=== PATIENT | male | born 1945 | race Caucasian/White ===

== ENCOUNTER 2020-04-13 09:45 | Inpatient (IN) | payer MEDICARE, BC ==
[2020-04-13] MEDS ORDERED: PHENYLEPHRINE-NS 100 MCG/ML 10 ML SYRINGE ONE (09:52)
[2020-04-13] MEDS ORDERED: Rocuronium Bromide 10 MG/ML (10ML VIAL) ONE (09:52)
[2020-04-13] MEDS ORDERED: PROPOFOL 200 MG/20 ML VIAL ONE (09:52)
[2020-04-13] MEDS ORDERED: Succinylcholine 200 MG/10 ml SYRINGE FS ONE (09:52)
[2020-04-13] MEDS ORDERED: EPHEDRINE 25 MG/5 ML SYRINGE ONE (09:52)
[2020-04-13] MEDS ORDERED: Dexamethasone 20 MG/5 ML VIAL ONE (09:52)
[2020-04-13] MEDS ORDERED: Ondansetron PF 4 MG/2 ML Vial ONE (09:52)
[2020-04-13] MEDS ORDERED: Albuterol Sulfate HFA (OR ONLY) ONE ×2 (09:52→11:58)
--- NOTE | 2020-04-13 09:58 | CT ---
CT Brain WO Con: 04/13/2020 9:45 AM CLINICAL HISTORY: Unable to follow commands with right-sided weakness; stroke alert. IMAGING TECHNIQUE: Multiple CT images were obtained of the brain without IV contrast. COMPARISON: None. FINDINGS: BRAIN: Evidence of acute infarct: None. Evidence of chronic ischemic change:There is moderate chronic small vessel white matter ischemic [place] ge. There is a tiny remote lacunar infarcts involving the globus pallidus and left caudate head. Evidence of intracranial hemorrhage: None. Evidence of midline shift: Third ventricle and septum pellucidum are midline. Ventricles: Normal. No hydrocephalus. SKULL: Intact. VISUALIZED PARANASAL SINUSES: There is osteitis surrounding a completely opacified right major sphen oid air cell. There is mild mucosal thickening in the ethmoid air cells. Maxillary sinuses appear clear. MASTOID AIR CELLS: Clear. EXTRACRANIAL SOFT TISSUES: Normal. IMPRESSION: 1. No definite acute intracranial abnormality. 2. Moderate chronic small vessel white matter ischemic change. 3. Chronic right sphenoid sinusitis. 4. Findings called to Dr. Boothe at 9:53 AM on April 13, 2020
[2020-04-13 10:00] LABS: #Eosinphils 0.3 thou/uL (0.0-0.7); #Lymphocytes 1.3 thou/uL (1.20-3.40); #Monocytes 0.7 thou/uL (0.11-0.59); %Basophils 0.5 % (0.0-1.0); %Eosinophils 3.5 % (0.0-10.0); %Lymphocytes 13.6 % (21.0-51.0); %Monocytes 7.9 % (0.0-10.0); %Neutrophils 74.6 % (42.0-75.0); Hemoglobin 14.9 g/dL (14.0-18.0); Mean Corpuscular HGB CONC 32.3 g/dL (32.0-36.0); Mean Corpuscular Hemoglobin 30.5 pg (27.0-31.0); Mean Corpuscular Volume 94.5 fL (78.0-98.0); Mean Platelet Volume 8.6 fL (7.4-10.4); Platelet Count 164 thou/uL (130-400); RBC Distribution Width 13.5 % (11.5-14.5); White Blood Cell (WBC) Count 9.4 thou/uL (4.8-10.8)
[2020-04-13 10:12] LABS: INR-International Normal Ratio 0.9; PTT 27.6 sec (22.9-36.1); Prothrombin Time 12.6 sec (12.0-14.7)
[2020-04-13 10:15] LABS: ALT (SGPT) 8 U/L (8-55); AST (SGOT) 12 U/L (5-34); Albumin 4.1 g/dL (3.4-4.8); Alkaline Phosphatase 73 U/L (40-110); Anion Gap 12 mmol/L (10-20); BUN (Urea Nitrogen) 20 mg/dL (8.4-25.7); Bilirubin, Total 0.7 mg/dL (0.2-1.2); CK (CPK) 45 U/L (30-200); Calc. Creatinine Clearance 0 mL/min (70-130); Calcium 9.1 mg/dL (7.8-10.44); Carbon Dioxide 32 mmol/L (23-31); Chloride 98 mmol/L (98-107); Estimated GFR-MDRD 44; Globulin 2.6 g/dL (2.4-3.5); Glucose 103 mg/dL (83-110); Potassium 4.5 mmol/L (3.5-5.1); Protein, Total 6.7 g/dL (5.8-8.1); Sodium 137 mmol/L (136-145)
[2020-04-13] MEDS ORDERED: Heparin 10,000 UNITS/ 10 ML VIAL ONE (10:19)
[2020-04-13] MEDS ORDERED: Midazolam HCl 2 mg/2 ml Vial ONE (10:24)
[2020-04-13] MEDS ORDERED: Fentanyl 100 MCG/2 ML VIAL ONE (10:24)
--- NOTE | 2020-04-13 10:25 | CT ---
CTA of the head with IV contrast and 3-D reformatted imaging. CTA of the neck with IV contrast and 3-D reformatted imaging. INDICATION: Right-sided weakness with inability to speak COMPARISON: CT the brain without contrast dated April 13, 2020 at 9:51 AM. FINDINGS: CTA OF THE HEAD WITH CONTRAST: CTA OF THE BRAIN: Right ICA: There is some mild atherosclerotic irregularity involving the petrous, precavernous and c avernous segments of the right ICA. Right MCA: Patent. Right SANDEEP: Patent. ACOM: Patent. Left ICA: There is mild atherosclerotic irregularity involving the petrous and precavernous left ICA . Left MCA: There is complete occlusion of the distal left M1 branch extending into the proximal left M2 branch with intraluminal thrombus. There is a proximal variant anterior division MCA branch extending off of the proximal left M1 segment. Left SANEDEP: Patent. PCOMs: Patent. Vertebral arteries: Patent. Basilar Artery: Patent. mix house operator: Patent. Incidentals: Moderate chronic small vessel white matter ischemic change. CTA OF THE NECK WITH CONTRAST: Right CCA: Patent. Right ICA: Patent. Right Subclavian: Patent. Right Vertebral Artery: Patent. Left CCA: Patent. Left ICA: Patent. Left Subclavian: Patent. Left Vertebral Artery: Patent. Aerodigestive tract: Clear. Parotids/Submandibular/Thyroid glands: Normal. Lymph nodes: No pathologically enlarged lymph nodes. Lung Apices: There are patchy groundglass airspace opacities within the upper lobes bilaterally whic h may reflect areas of subsegmental volume loss. Mild pneumonitis cannot be entirely excluded. Bones: There is scattered degenerative and osteoarthritic change present. No acute fracture or sublu xation demonstrated. Incidentals: There is postsurgical change of prior CABG. There is prominent coronary artery and thor acic aortic calcifications. IMPRESSION: 1. Completely occluding thrombus seen within the distal left M1 branch extending into the proximal le ft M2 branch. Findings discussed with Dr. Boothe at 10:08 AM on April 13, 2020. 2. No hemodynamically significant stenosis, occlusion or aneurysmal formation seen within the neck. 3. Patchy groundglass opacities within the upper lobes may reflect subsegmental volume loss; however, a mild infectious or inflammatory pneumonitis cannot be entirely excluded.
[2020-04-13] MEDS ORDERED: SUGAMMADEX SODIUM 200 MG/2 ML VIAL ONE (11:46)
[2020-04-13] MEDS ORDERED: niCARdipine 25 MG in Sodium Chloride 0.9% 250 ML 240 ML IVPB PRN (11:53)
[2020-04-13] MEDS ORDERED: Labetalol HCl 100 MG/20 ML VIAL SLOW IVP PRN (11:53)
[2020-04-13] MEDS ORDERED: hydrALAZINE 20 MG/ML VIAL SLOW IVP PRN (11:53)
[2020-04-13] MEDS ORDERED: Albuterol Sulfate 1.25 MG/3 ML NEB ONE (11:57)
[2020-04-13] MEDS ORDERED: Iopamidol-370 76% 500 ML 1 ML ONE (12:53)
[2020-04-13 13:10] LABS: #Eosinphils 0.2 thou/uL (0.0-0.7); #Lymphocytes 0.9 thou/uL (1.20-3.40); #Monocytes 0.3 thou/uL (0.11-0.59); #Neutrophils 10.3 thou/uL (1.40-6.50); %Basophils 0.1 % (0.0-1.0); %Eosinophils 1.8 % (0.0-10.0); %Lymphocytes 7.5 % (21.0-51.0); %Monocytes 2.7 % (0.0-10.0); %Neutrophils 87.9 % (42.0-75.0); Hemoglobin 14.4 g/dL (14.0-18.0); Mean Corpuscular HGB CONC 33.7 g/dL (32.0-36.0); Mean Corpuscular Hemoglobin 31.1 pg (27.0-31.0); Mean Corpuscular Volume 92.4 fL (78.0-98.0); Mean Platelet Volume 10.2 fL (7.4-10.4); Platelet Count 162 thou/uL (130-400); RBC Distribution Width 13.5 % (11.5-14.5); Red Blood Cell (RBC) Count 4.64 mill/uL (4.70-6.10); White Blood Cell (WBC) Count 11.8 thou/uL (4.8-10.8)
[2020-04-13 13:29] LABS: Anion Gap 15 mmol/L (10-20); BUN (Urea Nitrogen) 19 mg/dL (8.4-25.7); Calc. Creatinine Clearance 0 mL/min (70-130); Calcium 8.1 mg/dL (7.8-10.44); Carbon Dioxide 24 mmol/L (23-31); Chloride 104 mmol/L (98-107); Estimated GFR-MDRD 48; Glucose 115 mg/dL (83-110); Potassium 5.2 mmol/L (3.5-5.1); Sodium 138 mmol/L (136-145)
[2020-04-13 13:55] VITALS: BMI 34.9
[2020-04-13] MEDS: Communication Order-Pharmacy FS SCH (18:27)
[2020-04-13] MEDS: Sodium Chloride 0.9% 1,000 ML IV SCH (18:29)
[2020-04-13] MEDS: Arformoterol 15 MCG/2 ML NEB NEB SCH (19:10)
[2020-04-13] MEDS: Budesonide 0.5 MG/2 ML NEB NEB SCH (19:11)
--- NOTE | 2020-04-13 19:49 | CON ---
DATE OF CONSULTATION: 04/13/2020 CONSULTING PHYSICIAN: Dr. Holcomb. REASON FOR CONSULTATION: ICU management. HISTORY OF PRESENT ILLNESS: This is a 75-year-old male, who is in the ICU after thrombectomy for stroke. At the time of this dictation, there is no history and physical in the chart, so what I have is obtained from looking at the ER notes as the patient is aphasic and cannot give me anything in the way of history. PAST MEDICAL HISTORY: Remarkable for hypertension, diabetes mellitus type 2, gout, and COPD. PAST SURGICAL HISTORY: Not known at this time. ALLERGIES: NOT KNOWN. SOCIAL HISTORY: Not known. MEDICATIONS: Prior to admission; 1. Albuterol. 2. Trelegy Ellipta. 3. Amlodipine. 4. Atorvastatin. 5. Torsemide. 6. Aspirin. 7. Sotalol. 8. Lisinopril. 9. Allopurinol. 10. Loratadine. REVIEW OF SYSTEMS: Cannot be obtained reliably. PHYSICAL EXAMINATION: VITAL SIGNS: Heart rate 69, blood pressure 112/48 via right femoral art line, O2 saturation in the low 90s, respiratory rate 10 to 12. GENERAL: The patient is a disheveled-appearing male, who is aphasic. HEENT: Remarkable for rhinophyma. Oropharynx is clear. NECK: No adenopathy or JVD. LUNGS: Coarse rhonchi bilaterally. CARDIOVASCULAR: S1 and S2, regular. ABDOMEN: Soft and nontender to palpation. EXTREMITIES: No clubbing, cyanosis, or edema. LABORATORY DATA: White blood cell count 11.8, hematocrit 42.9, and platelet count 162. INR 0.9, PTT 27.6. Sodium 138, potassium 5.2, chloride 104, CO2 of 24, BUN 19, creatinine 1.4, and glucose 115. His brain CT was originally read out as unremarkable. The patient went back for CT [place] [facility] the [place], was found to have completely occluding thrombus within the M1 branch of the left MCA. ASSESSMENT: 1. Left MCA stroke. 2. Chronic obstructive pulmonary disease. 3. Chronic hypoxemic respiratory failure. PLAN: The patient will be treated with nebulization therapy, oxygen. I will add Pepcid for GI prophylaxis. He will be monitored in the ICU for at least 24 hours. Job ID: [id number]
--- NOTE | 2020-04-13 20:18 | CON ---
DATE OF CONSULTATION: PRIMARY CARE PROVIDER: Elke Sanchez. CHIEF COMPLAINT: Management of medical comorbidities. HISTORY OF PRESENT ILLNESS: Mr. Jeffery is a pleasant 75-year-old gentleman who was seen at [facility] on April 13, 2020, for management of medical comorbidities. Earlier today, he was found to have right-sided weakness, aphasia, and unable to follow commands at 8:34 a.m. He was brought to the emergency room. He was administered tPA and also had mechanical thrombectomy. He was now admitted to the Critical Care Unit. Hospitalist Service was consulted for management of medical comorbidities. The patient is sleepy, unable to answer questions at this time. REVIEW OF SYSTEMS: Could not be completed. PAST MEDICAL HISTORY: Appears to be significant for dyslipidemia, hypertension, congestive heart failure, diabetes mellitus, and gout. PAST SURGICAL HISTORY: Could not obtain. FAMILY HISTORY: No family history of stroke. SOCIAL HISTORY: The patient denies tobacco use. No history of alcohol use or recreational drug use. ALLERGIES: NO KNOWN DRUG ALLERGIES. CURRENT MEDICATIONS: 1. Amlodipine/atorvastatin 2.5/40 mg daily. 2. Torsemide 20 mg daily. 3. Metformin 500 mg daily. 4. Aspirin 81 mg every other day. 5. Sotalol 80 mg 2 times a day. 6. Lisinopril 2.5 mg daily. 7. Allopurinol 100 mg daily. 8. Loratadine 10 mg daily. 9. Guaifenesin 200 mg daily. 10. Trelegy Ellipta one puff in the morning. 11. Benadryl 25 mg at bedtime. PHYSICAL EXAMINATION: GENERAL: On examination, Mr. Jeffery is sleepy, but arousable, not in acute distress. He is obese, with a BMI of 35. VITAL SIGNS: Blood pressure is 121/51, pulse is 67, respiratory rate 12, and oxygen saturation 92% on room air. He is afebrile. HEENT: Eyes; no scleral icterus, no conjunctival pallor. ENT, moist mucosal membranes. NECK: Supple, nontender, trachea midline. RESPIRATORY: Accessory muscles of breathing are not active. Chest wall movements are symmetric bilaterally. Lungs are clear to auscultation without wheeze, rhonchi, or crepitations. CARDIOVASCULAR: S1 and S2 are heard, regular. Peripheral pulses palpable. NEUROLOGIC: Full neurologic examination was not possible. The patient is aphasic. There is no facial droop. Deep tendon reflexes 2+. ABDOMEN: Soft, nontender, bowel sounds are heard. MUSCULOSKELETAL: The patient is moving all 4 extremities. SKIN: No rashes. LYMPHATIC: No cervical lymphadenopathy. PSYCHIATRIC: Mood appears normal. The patient is oriented to person and place. LABORATORY DATA: Mr. Jeffery's labs and investigations were reviewed. traffic monitor specialist shows normal sinus rhythm. Noncontrast CT scan of the brain showed no definite acute intracranial abnormality. He also had CT angiogram of neck and brain, which showed a completely occluding thrombus within the distal left M1 branch extending into the proximal left M2 [place]. [place] [address], hemoglobin 14.4, and platelet count 162,000. INR 0.9. Sodium 138, potassium 5.2, and creatinine 1.42. LFTs are normal. Troponin I is normal. ASSESSMENT AND PLAN: Mr. Jeffery is a pleasant 75-year-old gentleman who was seen at [facility] on April 13, 2020 for management of medical comorbidities. His problem list includes: 1. Diabetes mellitus, type 2: I will start the patient on Accu-Cheks and insulin sliding scale. We will resume home medications once clarified. 2. Hyperkalemia: Mild, likely asymptomatic. We will recheck potassium. 3. Hypertension: We will resume home medications once clarified, monitor vital signs and titrate antihypertensives as needed. 4. Cerebrovascular accident: The patient has been admitted under Interventional Neurology Service, will follow instructions. 5. Dyslipidemia: Continue statin when the patient is able to take oral medications. 6. Chronic kidney disease: Appears to be stable. Many thanks for allowing me to participate in your patient's care. Please feel free to contact me with any questions or concerns. LEVEL OF RISK: Moderate. LEVEL OF COMPLEXITY: Moderate. ESTIMATED LENGTH OF STAY IN THE HOSPITAL: Greater than two midnights. Job ID: [id number] [facility]
[2020-04-13] MEDS: Famotidine/PF 20 mg/2ml Vial SLOW IVP SCH (20:52)
[2020-04-13] MEDS: Atorvastatin Calcium 40 MG TAB PO SCH ×2 (20:53→21:01)
[2020-04-14 03:55] LABS: Cardiac Risk 3.1 (Less than 4.5)
--- NOTE | 2020-04-14 06:24 | CON ---
NEUROLOGY CONSULTATION DATE OF CONSULTATION: 04/13/2020 REASON FOR CONSULTATION: Acute onset right-sided weakness with right facial droop and aphasia, status post tPA and mechanical thrombectomy. HISTORY OF PRESENT ILLNESS: Mr. Aure Jeffery is a 75-year-old male with medical history significant for coronary artery disease, status post cardiac stents, stage three COPD requiring oxygen at night, hypertension, hyperlipidemia, presented with acute onset right-sided weakness with mild right facial droop and aphasia. History is taken from the since the patient has aphasia and unable to provide the history. Per , she last saw him normal before 9 a.m. this morning. She went out to drink a cup of coffee and then when she came back around 9 a.m., at that time he seemed to be staring off in space and confused. She asked him few questions and he was unable to respond. She also noticed mild right facial droop and he was weak on the right side of the body. She called the ambulance and arrived to the emergency room around 9:[address] was done, which was negative for acute intracranial pathology. CTA of the head showed thrombus in the M1 distribution. He was given tPA around 10, which was completed around 11:02 a.m. He was taken to the labor relations specialist and embolectomy was done by Dr. Holcomb and transferred to the CCU for further management. Improvement was noted in the neurological deficits per and also by the nursing staff. When he arrived in the CCU he was totally aphasic and weak on the right side. However, 2 hours later he was able to tell his name and follow simple 1-step commands. He was also able to lift his right upper and lower extremity antigravity, which is an improvement per and the nursing staff. Per , he has been followed by a telephone assembler and a dial painter, but denies any nausea, vomiting, headache, chest pain, abdominal pain, recent illness, or recent exposure to COVID, but does report sudden onset weakness and aphasia this morning. REVIEW OF SYSTEMS: All 14 systems were reviewed and were negative except the pertinent positives and negatives mentioned in the HPI. PAST MEDICAL HISTORY: Coronary artery disease; COPD stage 3, requiring oxygen at night; hypertension, hyperlipidemia. PAST SURGICAL HISTORY: Status post cardiac stents x7. FAMILY HISTORY: Significant for stroke in the mother who at the age of 85. SOCIAL HISTORY: The patient is , lives with his . There is no history of smoking, alcohol, illegal drug use. He does have a past history of smoking 30 years ago. ALLERGIES: NO KNOWN DRUG ALLERGIES. PHYSICAL EXAMINATION: VITAL SIGNS: Blood pressure 109/66, respiratory rate 16, pulse 92. CVS: Regular rate and rhythm. CHEST: Clear. ABDOMEN: Soft. NECK: Supple. NEUROLOGICAL: Mental status: The patient is alert, awake, follows 1-step commands. He does have receptive aphasia, but was able to tell his name, not able to tell the place or the month. Cranial nerves: Cranial nerves 2 through 12 intact. Right facial droop seems to be resolved. Sensory: Withdraws to nailbed pressure bilaterally. Motor: Muscle tone and bulk are normal. Moving all 4 extremities. He is able to lift the right upper and lower extremity against resistance, 3+/5. Exam limited in the left lower extremity secondary to catheter. Cerebellar: Did not cooperate with the exam. Gait: Deferred due to patient's safety reasons. DATA REVIEWED: I reviewed the CT scan which was negative for acute intracranial pathology. CTA of the head showed a completely occluding thrombus seen within the distal left M1 branch extending into the proximal left M2 branch. ASSESSMENT AND PLAN: Mr. Aure Jeffery is a 75-year-old male with history significant for hypertension, chronic obstructive pulmonary disease and coronary artery disease, presented with sudden onset acute right-sided weakness with aphasia and right facial droop. He is status post tPA and mechanical thrombectomy and has been doing well and there is marked improvement in the last couple of hours. Neuro checks every 2 hours. Monitor blood pressure and blood glucose. No aspirin or anticoagulants for the next [address] 24 hours post tPA to rule out bleed. If head CT is negative for bleed, then start aspirin and high-intensity statin for secondary stroke prevention. N.p.o. until cleared by Speech. Continue home medications. Continue medical management per primary team. PT/OT when stable. He needs further stroke workup including 2D echocardiogram and MRI of brain. Continue telemetry. DVT prophylaxis with SCDs. We will continue to follow. Plan discussed in detail with the at bedside and also the nursing staff. Thank you for the consult. Job ID: [id number] [facility]
--- NOTE | 2020-04-14 07:50 | PRG ---
DATE OF SERVICE: 04/14/2020 Mr. Jeffery is one day status post administration of tPA and mechanical thrombectomy. I visited him in the ICU today where he looks excellent. He has had a dramatic overall improvement in his neurologic exam. Grossly, he has a normal neurologic exam. He may have some minor speech difficulty, but it is difficult to ascertain. I reviewed the CT scan performed this morning, which shows no evidence for hemorrhage. From my perspective, he can be discharged from the ICU to the stroke floor for further evaluation. I would anticipate he should have a very short hospital stay and will likely discharge to home rather than inpatient rehab. Job ID: [id number]
--- NOTE | 2020-04-14 08:17 | PRG ---
DATE OF SERVICE: 04/14/2020 SUBJECTIVE: The patient is doing extremely well. Looks like he has recovered all his neurologic deficits since having tPA and Maisha retrieval procedure. He has no acute complaints. OBJECTIVE: VITAL SIGNS: Temperature is 97.9, pulse 71, blood pressure 121/61. HEENT: Unremarkable. NECK: No JVD. LUNGS: Clear. CARDIAC: S1, S2. Regular. ABDOMEN: Soft and nontender. EXTREMITIES: No edema. NEUROLOGIC: Now nonfocal. LABORATORY DATA: No new labs were done today except for cholesterol profile. ASSESSMENT: 1. Status post thrombotic stroke - resolution of symptoms. 2. History of chronic obstructive pulmonary disease. 3. History of chronic hypoxemic respiratory failure. PLAN: From my standpoint, he can be transferred to the floor after his 24-hour tPA time is up and his sheath has been pulled. He can start stroke rehab. There really is not much that our group is adding to the case at this time. We will see intermittently. Job ID: [id number]
--- NOTE | 2020-04-14 08:51 | CT ---
PRELIMINARY REPORT/[facility]/EMERGENCY AFTER HOURS PROCEDURE The comparison has already been completed and report has been addended. Addendum electronically signed by Solomon Quijano MD on April 14, 2020 5:19:28 AM CDT Comparison addendum: Previous study dated April 13, 2020 not available for comparison. No additiona l comments or significant interval change. Addendum electronically signed by Solomon Quijano MD on April 14, 2020 4:32:32 AM CDT EXAM: CT Head Without Intravenous Contrast. CLINICAL HISTORY: F/U TECHNIQUE: Axial computed tomography images of the head/brain without intravenous contrast. COMPARISON: NONE PROVIDED. FINDINGS: BRAIN: No acute intraparenchymal hemorrhage. No mass lesion. No CT evidence for acute territorial infarct. N o midline shift or extra-axial collection. Mild generalized atrophy and chronic-appearing white matter changes. VENTRICLES: No hydrocephalus. ORBITS: The orbits are unremarkable. SINUSES AND MASTOIDS: Opacification of the sphenoid sinus on the right with smaller fluid level in the sphenoid sinus on th e left. Mastoids are grossly unremarkable. SOFT TISSUES: No significant facial or scalp soft tissue swelling evident. No radiopaque foreign body is seen. BONES: No acute skull fracture. IMPRESSION: No acute intracranial abnormality. Sphenoid sinus disease. ELECTRONICALLY SIGNED BY: Solomon Quijano MD Apr 14, 2020 4:31:34 AM CDT This report is intended for review by the ordering physician only, in accordance of law. If you recei ve this report in error, please call [facility] at [phone]. FINAL REPORT Final report by Dr. Torres Emergency after-hours study CT BRAIN NONCONTRAST: DATE: 04/14/2020 4:22 AM HISTORY: 75-year-old male with acute stroke. Status post middle cerebral artery clot retrieval by endovascular intervention. COMPARISON: 04/13/2020 FINDINGS: There is no evidence of acute intra-axial or extra-axial hemorrhage. There is no midline shift or any other mass effect. There is no extra-axial fluid collection. There is no evidence of obstructive hydrocephalus. Calvarium is intact. There is diffuse brain parenchymal volume loss. There are low att enuation areas in the white matter. These are nonspecific, but in a patient of this age, they are probably chronic ischemic white matter changes due to microvascular atherosclerosis. Tiny old lacunar infarction at anterior limb of left internal capsule. No interval change overall. Agree with preliminary report by [facility]. IMPRESSION: 1) No acute intracranial findings. 2) No interval change since 04/13/2020. 3) Tiny old lacunar infarction at anterior limb of left internal capsule. 4) Involutional changes and chronic ischemic white matter changes. Transcribed Date/Time: 04/14/2020 9:04 AM
[2020-04-14] MEDS ORDERED: FLU VACC QS2020-21(65YR UP)/PF 240 MCG/0.7 ML SYRINGE IM ONE (09:00)
[2020-04-14] MEDS: Arformoterol 15 MCG/2 ML NEB NEB SCH ×2 (09:03→22:33)
[2020-04-14] MEDS: Budesonide 0.5 MG/2 ML NEB NEB SCH ×2 (09:09→19:03)
[2020-04-14] MEDS: Sodium Chloride 0.9% 1,000 ML IV SCH (10:26)
[2020-04-14] MEDS: Famotidine/PF 20 mg/2ml Vial SLOW IVP SCH (10:27)
[2020-04-14] MEDS ORDERED: Aspirin 300 MG Suppository PR SCH ×2 (12:00→17:00)
--- NOTE | 2020-04-14 13:30 | PDOC.NEUPN ---
- Subjective Encounter Date: 04/14/20 Subjective: Patient has marked improvement in neurological deficits. He is now able to talk and left-sided weakness improved. - Objective Vital Signs & Weight: Vital Signs (12 hours) Temp Pulse Resp Pulse Ox 04/14/20 12:43 82 16 04/14/20 09:03 75 18 95 04/14/20 08:00 98.2 F 04/14/20 02:59 77 20 95 Weight Weight 272 lb 7.861 oz Most Recent Monitor Data Heart Rate from ECG 72 NIBP 112/56 NIBP BP-Mean 71 Respiration from ECG 16 SpO2 95 I&O: 04/13/20 04/14/20 04/15/20 06:59 06:59 06:59 Intake Total 1501 Output Total 1255 200 Balance 246 -200 Result Diagrams: 04/13/20 12:50 04/13/20 12:50 Radiology Reviewed by me: Yes EKG Reviewed by me: Yes ROS - Review of Systems Constitutional: denies: fever, chills, sweats, weakness, malaise, other Eyes: denies: pain, vision change, conjunctivae inflammation, eyelid inflammation, redness, other ENT: denies: ear pain, ear discharge, nose pain, nose discharge, nose congesti on, mouth pain, mouth swelling, throat pain, throat swelling, other Respiratory: denies: cough, dry, shortness of breath, hemoptysis, SOB with excertion, pleuritic pain, sputum, wheezing, other Gastrointestinal: denies: nausea, vomiting, abdominal pain, diarrhea, constipation, melena, hematochezia, other Genitourinary: denies: dysuria, frequency, incontinence, hematuria, retention, other Musculoskeletal: denies: neck pain, shoulder pain, arm pain, back pain, hand pain, leg pain, foot pain, other Skin: denies: rash, lesions, claudia, bruising, other Neurological: reports: change in speech. denies: weakness, numbness, incoordination, confusion, seizures, other - Medication Medications: Active Medications Generic Name Dose Route Start Last Admin Trade Name Freq PRN Reason Stop Dose Admin Albuterol/Ipratropium 3 ml 04/13/20 18:30 04/14/20 12:43 Ipratropium/Albuterol Sulfate 3 Ml Neb NEB 3 ml [id number] ELISABETH Administration Arformoterol Tartrate 15 mcg 04/13/20 18:30 04/14/20 09:03 Arformoterol 15 Mcg/2 Ml Neb NEB 15 mcg BID-RT ELISABETH Administration Aspirin 300 mg 04/14/20 12:00 04/14/20 10:28 Aspirin 300 Mg Suppository NE Not Given 1200 ELISABETH Atorvastatin Calcium 40 mg 04/13/20 21:00 04/13/20 21:01 Atorvastatin Calcium 40 Mg Tab PO Not Given HS ELISABETH Budesonide 0.5 mg 04/13/20 18:30 04/14/20 09:09 Budesonide 0.5 Mg/2 Ml Neb NEB 0.5 mg BID-RT ELISABETH Administration Famotidine 20 mg 04/13/20 21:00 04/14/20 10:27 Famotidine/Pf 20 Mg/2ml Vial SLOW IVP 20 mg BID ELISABETH Administration Sodium Chloride 1,000 mls @ 80 mls/hr 04/13/20 18:30 04/14/20 10:26 Normal Saline 0.9% IV 1,000 mls .[id number] ELISABETH Administration - Exam General Appearance: awake alert Eye: PERRL ENT: normocephalic atraumatic Neck: supple Respiratory: CTAB Cardiovascular: RRR Gastrointestinal: soft Extremities: no cyanosis Skin: normal turgor Neurological: no new deficit Musculoskeletal: normal tone, normal strength, no muscle wasting PSYCH: normal affect, normal behavior, A&O x 3 Results - Labs Result Diagrams: 04/13/20 12:50 04/13/20 12:50 Lab results: WBC 11.8 thou/uL (4.8-10.8) H 04/13/20 12:50 Hgb 14.4 g/dL (14.0-18.0) 04/13/20 12:50 Hct 42.9 % (42.0-52.0) 04/13/20 12:50 MCV 92.4 fL (78.0-98.0) 04/13/20 12:50 Plt Count 162 thou/uL (130-400) 04/13/20 12:50 Neutrophils % 87.9 % (42.0-75.0) H 04/13/20 12:50 Sodium 138 mmol/L (136-145) 04/13/20 12:50 Potassium 5.2 mmol/L (3.5-5.1) H 04/13/20 12:50 Chloride 104 mmol/L (98-107) 04/13/20 12:50 Carbon Dioxide 24 mmol/L (23-31) 04/13/20 12:50 BUN 19 mg/dL (8.4-25.7) 04/13/20 12:50 Creatinine 1.42 mg/dL (0.7-1.3) H 04/13/20 12:50 Glucose 115 mg/dL (83-110) H 04/13/20 12:50 Calcium 8.1 mg/dL (7.8-10.44) 04/13/20 12:50 Total Bilirubin 0.7 mg/dL (0.2-1.2) 04/13/20 09:49 AST 12 U/L (5-34) 04/13/20 09:49 ALT 8 U/L (8-55) 04/13/20 09:49 Alkaline Phosphatase 73 U/L (40-110) 04/13/20 09:49 Creatine Kinase 45 U/L (30-200) 04/13/20 09:49 Troponin I 0.018 ng/mL (< 0.028) 04/13/20 09:49 Serum Total Protein 6.7 g/dL (5.8-8.1) 04/13/20 09:49 Albumin 4.1 g/dL (3.4-4.8) 04/13/20 09:49 - Radiology Interpretation CT scan - head Status: image reviewed by me, report reviewed by me Additional Comment: Head CT reviewed. Not reveal acute intracranial pathology or bleed. PN A/P - Plan Daily Plan: plan discussed w/ family, PT/OT, speech therapy, DVT proph w/SCDs 75-year-old male with a history significant for coronary artery disease presented with sudden onset aphasia and left-sided weakness. He is status post TPA and mechanical embolectomy by Dr. Holcomb with marked improvement and almost resolution of neurological deficits including aphasia and left hemiparesis. Repeat head CT 24 hours post TPA reviewed which was negative for bleed. Start aspirin and high intensity statin for secondary stroke prevention once cleared by speech. Neurochecks every 4 hours. MRI of the brain to assess for acute intracranial pathology. 2D echo to evaluate left ventricular ejection fraction and PFO. Telemetry to rule out arrhythmias. CTA of the head and neck reviewed. M1 thrombosis and is now status post mechanical thrombectomy and doing well. Continue home medications. Permissive control of blood pressure at this time. Strict control of blood glucose. PT/OT/speech. Continue medical management per primary team. Plan discussed in detail with the patient, and during stroke rounds.
[2020-04-14] MEDS: Aspirin 325 mg Enteric Coated Tablet PO SCH (13:56)
[2020-04-14] MEDS: Enoxaparin Sodium 30 MG/0.3 ML SYRINGE SC SCH (13:56)
[2020-04-14] MEDS: Communication Order-Pharmacy FS SCH (16:58)
--- NOTE | 2020-04-14 18:27 | PDOC.HOSPP ---
- Subjective Encounter Date: 04/14/20 Encounter Time: 08:00 Subjective: Patient seen for follow-up regarding acute ischemic cerebrovascular accident. More alert today, denies chest pain or shortness of breath. - Objective Vital Signs & Weight: Vital Signs (12 hours) Temp Pulse Pulse Pulse Resp BP BP 04/14/20 16:44 98.1 F 82 17 04/14/20 16:00 98.6 F 04/14/20 15:35 96 83 99/69 115/72 04/14/20 14:39 80 16 04/14/20 12:43 82 16 04/14/20 12:00 98.4 F 04/14/20 09:03 75 18 04/14/20 08:00 98.2 F BP Pulse Ox 04/14/20 16:44 113/72 94 L 04/14/20 16:00 04/14/20 15:35 04/14/20 14:39 93 L 04/14/20 12:43 04/14/20 12:00 04/14/20 09:03 95 04/14/20 08:00 95 Weight Weight 272 lb 7.861 oz Most Recent Monitor Data Heart Rate from ECG 81 NIBP 113/74 NIBP BP-Mean 82 Respiration from ECG 17 SpO2 96 I&O: 04/13/20 04/14/20 04/15/20 06:59 06:59 06:59 Intake Total 1501 947 Output Total 1255 400 Balance 246 547 Result Diagrams: 04/13/20 12:50 04/13/20 12:50 Additional Labs: I reviewed patient's labs and MAR EKG Reviewed by me: Yes (Telemetry: NSR) Hospitalist ROS - Review of Systems Cardiovascular: denies: chest pain, palpitations, orthopnea, paroxysmal noc. dyspnea, edema, light headedness Gastrointestinal: denies: nausea, vomiting, abdominal pain, diarrhea, constip ation, melena, hematochezia - Medication Medications: Active Medications Generic Name Dose Route Start Last Admin Trade Name Freq PRN Reason Stop Dose Admin Albuterol/Ipratropium 3 ml 04/13/20 18:30 04/14/20 14:39 Ipratropium/Albuterol Sulfate 3 Ml Neb NEB 3 ml [id number] ELISABETH Administration Arformoterol Tartrate 15 mcg 04/13/20 18:30 04/14/20 09:03 Arformoterol 15 Mcg/2 Ml Neb NEB 15 mcg BID-RT ELISABETH Administration Aspirin 325 mg 04/14/20 12:00 04/14/20 13:56 Aspirin 325 Mg Enteric Coated Tablet PO 325 mg 1200 ELISABETH Administration Atorvastatin Calcium 40 mg 04/13/20 21:00 04/13/20 21:01 Atorvastatin Calcium 40 Mg Tab PO Not Given HS ELISABETH Budesonide 0.5 mg 04/13/20 18:30 04/14/20 09:09 Budesonide 0.5 Mg/2 Ml Neb NEB 0.5 mg BID-RT ELISABETH Administration Enoxaparin Sodium 30 mg 04/14/20 12:00 04/14/20 13:56 Enoxaparin Sodium 30 Mg/0.3 Ml Syringe SC 30 mg 1200 ELISABETH Administration Sodium Chloride 1,000 mls @ 80 mls/hr 04/13/20 18:30 04/14/20 10:26 Normal Saline 0.9% IV 1,000 mls .[id number] ELISABETH Administration - Exam General - other findings: Obese Eye: anicteric sclera ENT: moist mucosa Neck: supple Heart: RRR Respiratory: CTAB Gastrointestinal: soft, non-tender Skin: no rashes Musculoskeletal: no muscle wasting Psychiatric: normal affect, normal behavior Hosp A/P (1) Ischemic cerebrovascular accident (CVA) Code(s): I63.9 - CEREBRAL INFARCTION, UNSPECIFIED Status: Acute (2) Hypertension Code(s): I10 - ESSENTIAL (PRIMARY) HYPERTENSION Status: Chronic (3) Diabetes mellitus type 2 in obese Code(s): E11.69 - TYPE 2 DIABETES MELLITUS WITH OTHER SPECIFIED COMPLICATION; E66.9 - OBESITY, UNSPECIFIED Status: Chronic (4) Dyslipidemia Code(s): E78.5 - HYPERLIPIDEMIA, UNSPECIFIED Status: Chronic - Plan Status post TPA, status post mechanical thrombectomy. Patient is improving clinically. Accu-Cheks and insulin sliding scale. Resume home antihypertensives. Transfer to stroke floor.
[2020-04-14] MEDS ORDERED: HumaLOG 300 UNITS/3 ML VIAL SC PRN (18:32)
[2020-04-14] MEDS ORDERED: Dextrose 5% in Water 1,000 ML IV PRN (18:32)
[2020-04-14] MEDS ORDERED: Dextrose 50% Abboject 50 ML SYRINGE SLOW IVP PRN (18:32)
[2020-04-14 19:19] LABS: Potassium 4.7 mmol/L (3.5-5.1)
[2020-04-14] MEDS: Famotidine 20 MG TAB PO SCH (21:36)
[2020-04-14] MEDS: Atorvastatin Calcium 40 MG TAB PO SCH (21:37)
[2020-04-15] MEDS: Sodium Chloride 0.9% 1,000 ML IV SCH ×2 (00:52→04:44)
[2020-04-15 04:52] LABS: #Eosinphils 0.1 thou/uL (0.0-0.7); #Lymphocytes 1.1 thou/uL (1.20-3.40); #Monocytes 0.8 thou/uL (0.11-0.59); #Neutrophils 9.1 thou/uL (1.40-6.50); %Basophils 0.3 % (0.0-1.0); %Eosinophils 0.8 % (0.0-10.0); %Lymphocytes 10.3 % (21.0-51.0); %Monocytes 6.9 % (0.0-10.0); %Neutrophils 81.7 % (42.0-75.0); Hemoglobin 13.2 g/dL (14.0-18.0); Mean Corpuscular HGB CONC 33.5 g/dL (32.0-36.0); Mean Corpuscular Hemoglobin 31.1 pg (27.0-31.0); Mean Platelet Volume 9.4 fL (7.4-10.4); Platelet Count 151 thou/uL (130-400); RBC Distribution Width 13.5 % (11.5-14.5); Red Blood Cell (RBC) Count 4.26 mill/uL (4.70-6.10); White Blood Cell (WBC) Count 11.1 thou/uL (4.8-10.8)
[2020-04-15 05:34] LABS: Anion Gap 12 mmol/L (10-20); BUN (Urea Nitrogen) 21 mg/dL (8.4-25.7); Calc. Creatinine Clearance 83 mL/min (70-130); Calcium 8.1 mg/dL (7.8-10.44); Carbon Dioxide 22 mmol/L (23-31); Chloride 107 mmol/L (98-107); Estimated GFR-MDRD 53; Glucose 95 mg/dL (83-110); Potassium 4.2 mmol/L (3.5-5.1); Sodium 137 mmol/L (136-145)
[2020-04-15] MEDS: Arformoterol 15 MCG/2 ML NEB NEB SCH (06:56)
[2020-04-15] MEDS: Budesonide 0.5 MG/2 ML NEB NEB SCH (06:56)
[2020-04-15] MEDS: Famotidine 20 MG TAB PO SCH (08:27)
[2020-04-15] MEDS ORDERED: Cholecalciferol 1,000 UNITS (25 MCG) TAB PO SCH (09:00)
[2020-04-15] MEDS ORDERED: Amlodipine 5 MG TAB PO SCH (09:00)
[2020-04-15] MEDS ORDERED: Allopurinol 100 MG TAB PO SCH (09:00)
[2020-04-15] MEDS ORDERED: Lisinopril 2.5 MG TAB PO SCH (09:00)
[2020-04-15] MEDS ORDERED: Torsemide 20 MG TAB PO SCH (09:00)
[2020-04-15] MEDS: Enoxaparin Sodium 30 MG/0.3 ML SYRINGE SC SCH (11:37)
[2020-04-15] MEDS: Aspirin 325 mg Enteric Coated Tablet PO SCH (11:37)
[2020-04-15 11:49] VITALS: TEMP 97.6
[2020-04-15 12:35] VITALS: BP 133/73
[2020-04-15] MEDS ORDERED: Clopidogrel Bisulfate 75 MG TAB PO SCH (13:00)
--- NOTE | 2020-04-15 14:51 | DIS ---
DATE OF ADMISSION: 04/13/2020 DATE OF DISCHARGE: 04/15/2020 DISCHARGE DISPOSITION: Home. FOLLOWUP: 1. Follow up with primary care physician, Elke Sanchez, in 1 week. 2. Follow up with Neurology, Dr. Lino Ortez, in 1 to 2 weeks. 3. Follow up with primary print finishing worker, Dr. Dang, in 1 week. MEDICATIONS: 1. Eliquis 5 mg BID. 2. Aspirin 81 mg daily. 3. Lipitor 40 mg daily. All other home medications were left unchanged. The patient was evaluated on the day of discharge. Denies any new complaints. No chest pain, palpitations, lightheadedness, dizziness or new focal deficit reported. NIH on the day of discharge is 0. BRIEF HOSPITAL COURSE: The patient is a 75-year-old male with hypertension, coronary artery disease status post CABG and stent placement, presented to the emergency room on April 13, 2020, with stroke-like symptoms. He was not able to speak and stopped using his right side. Please refer to the history and physical for further details. The patient was admitted to the hospital with a diagnosis of acute CVA. His NIH in the emergency room was 31. Initial CT scan of the brain was negative for acute findings except for moderate chronic small vessel white matter ischemic change. CTA of the head and neck showed completely occluding thrombus seen within the distal left M1 branch extending into the proximal left M2 branch. TPA was administered in the emergency room. He also underwent mechanical thrombectomy by interventional neurologist, Dr. Holcomb. He was monitored in the ICU. His symptoms significantly improved. His NIH on the day of discharge is 0. He was started on 325 mg aspirin. Telemetry monitoring showed sinus rhythm throughout the hospital stay. I discussed the case with the on-call neurologist Dr. Ortez as well as his primary Community Health Nurse Staff Dr Dang. He will be started on anticoagulation due to high risk of recurrent CVA per Cardiology recommendation. Patient and the family understand the risk associated with anticoagulation not limited to life-threatening complications. He appears stable for discharge. Patient had recent Echocardiogram at Dr. Dang's office. FINAL DIAGNOSES: 1. Acute cerebrovascular accident involving the left middle cerebral artery distribution, status post tPA and mechanical thrombectomy ( suspected embolic) 2. Coronary artery disease status post coronary artery bypass grafting and stent placement. 3. Paroxysmal Atrial fibrillation -in sinus rhythm. 4. Hypertension. 5. Diabetes mellitus, type 2. 6. Chronic right sphenoid sinusitis on the CT scan. DIAGNOSTIC TESTS: Fasting lipid profile showed cholesterol of 101 with LDL of 55, HDL of 33, triglycerides of 67. Creatinine on admission was 1.54, at discharge is 1.31. The patient and the family understand the above plan of care. Job ID: [id number] MTDD
[2020-04-16] MEDS ORDERED: Clopidogrel Bisulfate 75 MG TAB PO SCH (09:00)
[2020-04-16] MEDS ORDERED: Aspirin 81 mg Enteric Coated Tablet PO SCH (09:00)
--- NOTE | 2020-04-17 11:36 | CT ---
CTA of the head with IV contrast and 3-D reformatted imaging. CTA of the neck with IV contrast and 3-D reformatted imaging. INDICATION: Right-sided weakness with inability to speak COMPARISON: CT the brain without contrast dated April 13, 2020 at 9:51 AM. FINDINGS: CTA OF THE HEAD WITH CONTRAST: CTA OF THE BRAIN: Right ICA: There is some mild atherosclerotic irregularity involving the petrous, precavernous and c avernous segments of the right ICA. Right MCA: Patent. Right SANDEEP: Patent. ACOM: Patent. Left ICA: There is mild atherosclerotic irregularity involving the petrous and precavernous left ICA . Left MCA: There is complete occlusion of the distal left M1 branch extending into the proximal left M2 branch with intraluminal thrombus. There is a proximal variant anterior division MCA branch extending off of the proximal left M1 segment. Left SANDEEP: Patent. PCOMs: Patent. Vertebral arteries: Patent. Basilar Artery: Patent. printer assistant: Patent. Incidentals: Moderate chronic small vessel white matter ischemic change. CTA OF THE NECK WITH CONTRAST: Right CCA: Patent. Right ICA: Patent. Right Subclavian: Patent. Right Vertebral Artery: Patent. Left CCA: Patent. Left ICA: Patent. Left Subclavian: Patent. Left Vertebral Artery: Patent. Aerodigestive tract: Clear. Parotids/Submandibular/Thyroid glands: Normal. Lymph nodes: No pathologically enlarged lymph nodes. Lung Apices: There are patchy groundglass airspace opacities within the upper lobes bilaterally whic h may reflect areas of subsegmental volume loss. Mild pneumonitis cannot be entirely excluded. Bones: There is scattered degenerative and osteoarthritic change present. No acute fracture or sublu xation demonstrated. Incidentals: There is postsurgical change of prior CABG. There is prominent coronary artery and thor acic aortic calcifications. IMPRESSION: 1. Completely occluding thrombus seen within the distal left M1 branch extending into the proximal le ft M2 branch. Findings discussed with Dr. Boothe at 10:08 AM on April 13, 2020. 2. No hemodynamically significant stenosis, occlusion or aneurysmal formation seen within the neck. 3. Patchy groundglass opacities within the upper lobes may reflect subsegmental volume loss; however, a mild infectious or inflammatory pneumonitis cannot be entirely excluded. Transcribed Date/Time: 04/17/2020 11:35 AM
--- NOTE | 2020-04-18 05:09 | PQF ---
CLINICAL DOCUMENTATION CLARIFICATION FORM: Dear : Ori Goode Date / Time: 04/18/2020 4154 Please exercise your independent, professional judgment in responding to the clarification form. Clinical indicators are provided on the bottom of this form for your review Please check appropriate box(es): [x ] Encephalopathy: Etiology:[ ] Metabolic [ ] Toxic [ ] Unspecified [ x] due to acute CVA [ ] Other diagnosis [ ] Unable to determine In addition, please specify: Present on Admission (POA): [ x ] Yes [ ] No [ ] Unable to determine Physician Signature: Date/Time: For continuity of documentation, please document condition throughout progress notes and discharge summary. Thank You. To be completed by CDI/Coding staff for physician review: Present Clinical Indicators - Signs / Symptoms / Labs Results and Location in Medical Record [X] BP 179/31, Pulse 74, Resp 22, Temp 97.8 Vital signs 04/10 [X] CT brain: Moderate chronic small vessel white ischemic changes Imaging Dr Villareal 04/13 [X] Acute onset of right sided weakness with facial droop and aphasia Consult Alexus Mcnair 04/13 [X] She went out to drink coffee and at that time he seemed to be staring off in space and confused Consult Alexus Mcnair 04/13 [X] NIHSS 31, GCS 11 Neuro panel 04/13 [X] The patient is sleepy, unable to answer question Consult Alexus Mcnair 04/13 Present Risk Factors Results and Location in Medical Record [X] 75 year-old Male Consult Alexus Mcnair 04/13 [X] CAD Consult Alexus Mcnair 04/13 [X] COPD on oxygen at home Consult Alexus Mcnair 04/13 [X] HTN Consult Alexus Mcnair 04/13 [X] HLD Consult Alexus Mcnair 04/13 [X] DM Consult Alexus Mcnair 04/13 [X] Acute CVA Consult Alexus Mcnair 04/13 [X] Hyperkalemia Consult Alexus Mcnair 04/13 [X] CKD Consult Alexus Mcnair 04/13 [X] Obesity PN 04/14 Present Treatments Results and Location in Medical Record [X] IV TPA 100 ml MAR /8 [X] IVF NS 1L SEP 13 [X] Oxygen 3L Respiratory Panel 04/13 [X] CT brain Imaging Dr Villareal 04/13 [X] Neurology consult Consult Alexus Mcnair 04/13 [X] Neurocheck Consult Alexus Mcnair 04/13 CDS/Shoemaking Cutter Signature: Aleyda Mominjesus Phone #: [phone] Date/Time: 04/18/2020 6765 This is a permanent part of the Medical Record [facility]
--- NOTE | 2020-04-22 10:05 | EKG ---
Test Reason : STROKE Blood Pressure : / mmHG Vent. Rate : 062 BPM Atrial Rate : 062 BPM P-R Int : 396 ms QRS Dur : 150 ms QT Int : 478 ms P-R-T Axes : -17 264 045 degrees QTc Int : 485 ms Sinus rhythm with 1st degree A-V block Indeterminate axis Right bundle branch block Abnormal ECG Baseline Artifact Present Confirmed by RANULFO SERNA, GENE ([id number]), sports editor IVAN AZUL ([id number]) on 04/22/2020 10:05:12 AM Referred By: Confirmed By:GENE WINCHESTER MD
--- NOTE | 2020-04-25 15:17 | CCLSPC ---
PROCEDURE: Cerebral angiography with mechanical thrombectomy. ANESTHESIA: General. TECHNIQUE: The patient was brought into the angiogram suite and placed on table in supine position. Both groins were prepped and draped in the usual sterile fashion. An 8-[place] Islander sheath was placed using the Seldinger technique. A concentric guide catheter was passed over a long diagnostic catheter which was then advanced into the left internal carotid artery where an AP and lateral angiogram was performed. After confirming the presence of an occlusion of the left M1 branch of the middle cerebral artery as well as occlusion of the proximal M2 branch Trevo device was deployed for a total of 2 times. After the second deployment, there was complete baptist of blood flow from a TICI score of 0 to that of 3. All catheters were then removed. The sheath was sewn into place secondary to recent administration of TPA. IMPRESSION: The patient underwent successful angiography. The angiography revealed the presence of complete occlusion of the left middle cerebral artery at the M1 segment distally. The patient also underwent successful mechanical thrombectomy with complete resolution of blood flow. Job ID: [id number]
== END 2020-04-15 13:59 | disposition home or self-care (01) | DRG 24 ==
LOC: ERS 09:45 → CCL 10:45 → CCU 12:24 → 2SE 04-14 16:53
PROVIDERS: ADMIT Neurological Surgery; ATTEND Internal Medicine
PROC: 3E03317 Introduction of Other Thrombolytic into Peripheral Vein, Percutaneous Approach (ICD-10-PCS; principal; 2020-04-13)
PROC: 03CG3ZZ Extirpation of Matter from Intracranial Artery, Percutaneous Approach (ICD-10-PCS; 2020-04-13)
PROC: 3E02340 Introduction of Influenza Vaccine into Muscle, Percutaneous Approach (ICD-10-PCS; 2020-04-14)
DX: I63.412 Cerebral infarction due to embolism of left middle cerebral artery (principal); J96.11 Chronic respiratory failure with hypoxia; I13.0 Hypertensive heart and chronic kidney disease with heart failure and stage 1 through stage 4 chronic kidney disease, or unspecified chronic kidney disease; G81.93 Hemiplegia, unspecified affecting right nondominant side; G93.49 Other encephalopathy; I25.10 Atherosclerotic heart disease of native coronary artery without angina pectoris; I48.0 Paroxysmal atrial fibrillation; J32.3 Chronic sphenoidal sinusitis; R29.731 NIHSS score 31; M10.9 Gout, unspecified; J44.9 Chronic obstructive pulmonary disease, unspecified; R47.01 Aphasia; E78.5 Hyperlipidemia, unspecified; I50.9 Heart failure, unspecified; E87.5 Hyperkalemia; N18.9 Chronic kidney disease, unspecified; E11.22 Type 2 diabetes mellitus with diabetic chronic kidney disease; E66.9 Obesity, unspecified; Z68.35 Body mass index [BMI] 35.0-35.9, adult; R29.810 Facial weakness; Z23 Encounter for immunization; Z95.1 Presence of aortocoronary bypass graft; Z79.899 Other long term (current) drug therapy; Z79.82 Long term (current) use of aspirin; Z79.84 Long term (current) use of oral hypoglycemic drugs; Z95.5 Presence of coronary angioplasty implant and graft; Z99.81 Dependence on supplemental oxygen
CPT/HCPCS: 36415; 36416; 37184; 70450; 70496; 70498; 76942; 80048; 80053; 80061; 82550; 84132; 84484; 85025; 85610; 85730; 90471; 90662; 93005; 94640; 96365; 96376; C1757; C1887; G0008; J1100; J1644; J1650; J2250; J2405; J2704; J2997; J3010; J7620; J7626; Q9967; S0028

== ENCOUNTER 2021-08-06 11:44 | Outpatient (CLI) | payer MEDICARE, BC | END 2021-08-06 11:45 | disposition home or self-care (01) | LOC: BICULT 11:44 | PROVIDERS: ATTEND Urology | DX: N18.9 Chronic kidney disease, unspecified (principal); N28.89 Other specified disorders of kidney and ureter; N26.1 Atrophy of kidney (terminal) | CPT/HCPCS: 76770 ==

== ENCOUNTER 2022-03-22 11:42 | Outpatient (CLI) | payer MEDICARE, BC | END 2022-03-22 11:43 | disposition home or self-care (01) | LOC: CT 11:42 | PROVIDERS: ATTEND Urology | DX: N18.5 Chronic kidney disease, stage 5 (principal); N28.89 Other specified disorders of kidney and ureter; R33.9 Retention of urine, unspecified; N28.1 Cyst of kidney, acquired; N32.89 Other specified disorders of bladder; N18.9 Chronic kidney disease, unspecified | CPT/HCPCS: 36415; 74176; 80048 ==

== ENCOUNTER 2022-05-21 17:15 | Inpatient (IN) | payer MEDICARE, BC ==
[2022-05-21 18:19] LABS: Hemoglobin 15.3 g/dL (14.0-18.0); Mean Corpuscular HGB CONC 31.4 g/dL (32.0-36.0); Mean Corpuscular Hemoglobin 31.2 pg (27.0-31.0); Mean Corpuscular Volume 99.1 fl (78.0-98.0); Mean Platelet Volume 9.5 fL (7.4-10.4); Platelet Count 133 10x3/uL (130-400); RBC Distribution Width 14.1 % (11.5-14.5); Red Blood Cell (RBC) Count 4.91 mill/uL (4.70-6.10); White Blood Cell (WBC) Count 24.8 10x3/uL (4.8-10.8)
[2022-05-21 18:33] LABS: INR-International Normal Ratio 1.3; Prothrombin Time 16.6 sec (12.0-14.7)
[2022-05-21 18:34] LABS: PTT 36.7 sec (22.9-36.1)
[2022-05-21 18:40] LABS: Band 24 % (5-11); Large Platelets SLIGHT; Lymphocytes 1 % (21-51); MDiff Complete? YES; Metamyelocyte 1 % (0-0); Monocytes 6 % (0-10); Neutrophil 66 % (42-75); Platelet Morphology Comment Appears Adequate; RBC Morphology Normal; Reactive Lymphocytes 2 % (0-10)
[2022-05-21 18:53] LABS: CRP (Inflammatory) 6.61 mg/dL (= or < 0.5); Magnesium 1.9 mg/dL (1.6-2.6)
[2022-05-21 19:11] LABS: CKMB 1.9 ng/mL (0-6.6)
[2022-05-21] MEDS ORDERED: Cefepime 2 GM VIAL ONE (19:14)
[2022-05-21] MEDS ORDERED: Aspirin Chewable 81 MG TAB ONE (19:16)
[2022-05-21 19:29] LABS: ALT (SGPT) 14 U/L (8-55); AST (SGOT) 19 U/L (5-34); Alkaline Phosphatase 57 U/L (40-110); Anion Gap 18 mmol/L (10-20); BUN (Urea Nitrogen) 37 mg/dL (8.4-25.7); Bilirubin, Total 1.7 mg/dL (0.2-1.2); Calc. Creatinine Clearance 0 mL/min (70-130); Calcium 9.1 mg/dL (7.8-10.44); Carbon Dioxide 22 mmol/L (23-31); Chloride 101 mmol/L (98-107); Estimated GFR 28; Globulin 2.8 g/dL (2.4-3.5); Glucose 94 mg/dL (83-110); Potassium 4.2 mmol/L (3.5-5.1); Protein, Total 6.8 g/dL (5.8-8.1); Sodium 137 mmol/L (136-145)
[2022-05-21 19:45] LABS: Bacteria/HPF 4+ HPF (None Seen); Bilirubin Negative (Negative); Blood, Urine 1+ (Negative); Clarity Turbid (Clear); Glucose, Urine (Dipstick) Normal (Negative); Ketone, Urine Negative (Negative); Leukocyte 500 Leu/uL (Negative); Nitrite Negative (Negative); Protein, Urine (Dipstick) 30 mg/dL (Neg-Trace); Specific Gravity, Urine 1.016 (1.002-1.036); Squamous Epithelial 0-3 HPF (0-3); Urobilinogen Normal mg/dL (Less than 2); WBC/HPF Greater than 50 HPF (0-3); pH, Urine 5.5 (5.0-9.0)
[2022-05-21] MEDS ORDERED: Clindamycin/D5W 900 mg/50 ml Premix Bag ONE (20:33)
[2022-05-21] MEDS ORDERED: Albumin 25% 25 GM/100 ML BOT IVPB SCH (20:45)
[2022-05-21] MEDS ORDERED: VANCOMYCIN 2 GRAM/500 ML BAG 2 GM in Premix Bag 1 BAG IVPB SCH (20:45)
[2022-05-21] MEDS ORDERED: guaiFENesin 200 MG TAB PO PRN (20:51)
[2022-05-21] MEDS ORDERED: Albuterol Sulfate 2.5 mg/3 ml Neb NEB PRN (20:52)
[2022-05-21] MEDS ORDERED: [UNRECOGNIZED DRUG - REMARK] IVPB PRN (20:53)
[2022-05-21] MEDS ORDERED: Vancomycin HCl 1 GM in Sodium Chloride 0.9% 250 ML 300 ML IVPB SCH (21:00)
[2022-05-21 21:18] LABS: SARS-CoV-2 NAA Rapid Test Not Detected (NotDetected)
[2022-05-21 22:19] LABS: Critical Call Chem Troponin I RESULT DECREASING; Troponin I 0.252 ng/mL (< 0.028)
[2022-05-21] MEDS ORDERED: Famotidine 20 MG TAB ONE (22:24)
[2022-05-21] MEDS: Famotidine 20 MG TAB PO SCH (22:32)
[2022-05-21] MEDS: Sotalol HCl 80 MG TAB PO SCH (22:33)
[2022-05-21] MEDS: Heparin 5,000 UNITS/ML VIAL SC SCH (22:36)
[2022-05-21] MEDS: Ipratropium Bromide 0.06% Nasal Inhaler 15ml EA NARE SCH (23:05)
[2022-05-22] MEDS ORDERED: Calcium Carbonate 500 MG ChewTAB PO PRN (00:11)
[2022-05-22] MEDS ORDERED: Calcium Carbonate 500 MG ChewTAB ONE (00:23)
[2022-05-22 02:10] LABS: Critical Call Chem Troponin I RESULT DECREASING; Troponin I 0.225 ng/mL (< 0.028)
[2022-05-22] MEDS ORDERED: NOREPINEPHRINE 8 MG/250 ML-D5W 0 ML ONE (04:09)
[2022-05-22] MEDS ORDERED: NOREPINEPHRINE 8 MG/250 ML-D5W 250 ML IVPB SCH (04:30)
[2022-05-22 04:52] LABS: #Lymphocytes 0.6 thou/uL (1.20-3.40); #Monocytes 0.8 thou/uL (0.11-0.59); %Basophils 0.1 % (0.0-1.0); %Eosinophils 0.2 % (0.0-10.0); %Lymphocytes 3.9 % (21.0-51.0); %Neutrophils 90.7 % (42.0-75.0); Hemoglobin 13.2 g/dL (14.0-18.0); Mean Corpuscular HGB CONC 32.6 g/dL (32.0-36.0); Mean Corpuscular Hemoglobin 32.1 pg (27.0-31.0); Mean Corpuscular Volume 98.4 fl (78.0-98.0); Mean Platelet Volume 9.7 fL (7.4-10.4); Platelet Count 98 10x3/uL (130-400); RBC Distribution Width 13.8 % (11.5-14.5); Red Blood Cell (RBC) Count 4.11 mill/uL (4.70-6.10); White Blood Cell (WBC) Count 16.6 10x3/uL (4.8-10.8)
[2022-05-22 04:55] LABS: ALT (SGPT) 12 U/L (8-55); AST (SGOT) 12 U/L (5-34); Albumin 3.9 g/dL (3.4-4.8); Alkaline Phosphatase 44 U/L (40-110); Anion Gap 11 mmol/L (10-20); BUN (Urea Nitrogen) 41 mg/dL (8.4-25.7); Bilirubin, Total 1.5 mg/dL (0.2-1.2); Calc. Creatinine Clearance 0 mL/min (70-130); Calcium 8.8 mg/dL (7.8-10.44); Carbon Dioxide 26 mmol/L (23-31); Chloride 102 mmol/L (98-107); Estimated GFR 29; Globulin 2.1 g/dL (2.4-3.5); Glucose 116 mg/dL (83-110); Potassium 4.2 mmol/L (3.5-5.1); Sodium 135 mmol/L (136-145)
[2022-05-22] MEDS ORDERED: Aspirin 81 mg Enteric Coated Tablet ONE (09:01)
[2022-05-22] MEDS ORDERED: Cefepime 1 GM VIAL ONE (09:01)
[2022-05-22] MEDS: Allopurinol 100 MG TAB PO SCH (09:10)
[2022-05-22] MEDS: Cefepime 1 GM in Sodium Chloride 0.9% 100 ML IVPB SCH ×2 (09:10→20:07)
[2022-05-22] MEDS: Atorvastatin Calcium 40 MG TAB PO SCH (09:11)
[2022-05-22] MEDS: Aspirin 81 mg Enteric Coated Tablet PO SCH (09:11)
[2022-05-22] MEDS: Sotalol HCl 80 MG TAB PO SCH (09:12)
[2022-05-22] MEDS: Heparin 5,000 UNITS/ML VIAL SC SCH ×3 (09:15→20:07)
[2022-05-22] MEDS: Ipratropium Bromide 0.06% Nasal Inhaler 15ml EA NARE SCH ×3 (09:38→22:45)
[2022-05-22] MEDS ORDERED: Heparin 25,000 units/D5W 0 ML ONE (10:49)
[2022-05-22 14:16] VITALS: BMI 40.6
[2022-05-22] MEDS: Famotidine 20 MG TAB PO SCH (20:07)
[2022-05-22] MEDS: Vancomycin 1.5 GRAM/300 ML BAG 1.5 GM in Premix Bag 1 BAG IVPB SCH (22:01)
[2022-05-23] MEDS: Cefepime 1 GM in Sodium Chloride 0.9% 100 ML IVPB SCH ×2 (08:59→20:30)
[2022-05-23] MEDS: Sotalol HCl 80 MG TAB PO SCH ×2 (09:03→20:31)
[2022-05-23] MEDS: Aspirin 81 mg Enteric Coated Tablet PO SCH (09:04)
[2022-05-23] MEDS: Atorvastatin Calcium 40 MG TAB PO SCH (09:04)
[2022-05-23] MEDS: Allopurinol 100 MG TAB PO SCH (09:04)
[2022-05-23] MEDS: Heparin 5,000 UNITS/ML VIAL SC SCH ×3 (09:06→20:16)
[2022-05-23] MEDS: Ipratropium Bromide 0.06% Nasal Inhaler 15ml EA NARE SCH ×3 (09:15→20:33)
[2022-05-23 09:59] LABS: Albumin 3.9 g/dL (3.4-4.8); Anion Gap 14 mmol/L (10-20); BUN (Urea Nitrogen) 44 mg/dL (8.4-25.7); BUN/Creatinine Ratio 21.36; Calc. Creatinine Clearance 54 mL/min (70-130); Calcium 8.9 mg/dL (7.8-10.44); Carbon Dioxide 21 mmol/L (23-31); Chloride 102 mmol/L (98-107); Estimated GFR 32; Glucose 132 mg/dL (83-110); Phosphorus 3.4 mg/dL (2.3-4.7); Potassium 4.2 mmol/L (3.5-5.1); Sodium 133 mmol/L (136-145)
[2022-05-23] MEDS ORDERED: Lorazepam 1 MG TAB PO PRN (10:45)
[2022-05-23] MEDS ORDERED: Empagliflozin 10 MG TAB PO SCH (13:15)
[2022-05-23 14:44] LABS: Protein, Urine Random Quant 21 mg/dL (1-14); Sodium, Urine 26 mmol/L (Not Available); Urea Nitrogen, Random Urine 633 mg/dl
[2022-05-23] MEDS: Famotidine 20 MG TAB PO SCH (20:33)
[2022-05-23 21:26] LABS: Vancomycin, Trough 16.3 ug/mL
[2022-05-23] MEDS: Vancomycin 1.5 GRAM/300 ML BAG 1.5 GM in Premix Bag 1 BAG IVPB SCH (21:59)
[2022-05-24 05:16] LABS: Albumin 3.7 g/dL (3.4-4.8); Anion Gap 12 mmol/L (10-20); BUN (Urea Nitrogen) 43 mg/dL (8.4-25.7); BUN/Creatinine Ratio 23.76; Calc. Creatinine Clearance 61 mL/min (70-130); Calcium 8.9 mg/dL (7.8-10.44); Carbon Dioxide 22 mmol/L (23-31); Chloride 104 mmol/L (98-107); Estimated GFR 38; Glucose 92 mg/dL (83-110); Phosphorus 3.7 mg/dL (2.3-4.7); Potassium 4.4 mmol/L (3.5-5.1); Sodium 134 mmol/L (136-145)
[2022-05-24] MEDS: Cefepime 1 GM in Sodium Chloride 0.9% 100 ML IVPB SCH ×2 (08:13→20:43)
[2022-05-24] MEDS: Sotalol HCl 80 MG TAB PO SCH ×2 (08:13→20:45)
[2022-05-24] MEDS: Aspirin 81 mg Enteric Coated Tablet PO SCH (08:14)
[2022-05-24] MEDS: Heparin 5,000 UNITS/ML VIAL SC SCH ×3 (08:14→20:44)
[2022-05-24] MEDS: Empagliflozin 10 MG TAB PO SCH (08:14)
[2022-05-24] MEDS: Atorvastatin Calcium 40 MG TAB PO SCH (08:14)
[2022-05-24] MEDS: Allopurinol 100 MG TAB PO SCH (08:14)
[2022-05-24] MEDS ORDERED: Spironolactone 25 MG TAB PO SCH (08:30)
[2022-05-24] MEDS: Torsemide 20 MG TAB PO SCH (09:20)
[2022-05-24] MEDS: Ipratropium Bromide 0.06% Nasal Inhaler 15ml EA NARE SCH ×3 (09:21→20:58)
[2022-05-24 10:00] LABS: #Eosinphils 0.1 thou/uL (0.0-0.7); #Lymphocytes 0.7 thou/uL (1.20-3.40); #Monocytes 0.8 thou/uL (0.11-0.59); %Basophils 0.1 % (0.0-1.0); %Eosinophils 1.9 % (0.0-10.0); %Lymphocytes 8.7 % (21.0-51.0); %Monocytes 10.2 % (0.0-10.0); %Neutrophils 79.1 % (42.0-75.0); Hemoglobin 13.3 g/dL (14.0-18.0); Mean Corpuscular HGB CONC 32.1 g/dL (32.0-36.0); Mean Corpuscular Hemoglobin 31.5 pg (27.0-31.0); Mean Corpuscular Volume 97.9 fl (78.0-98.0); Mean Platelet Volume 10.1 fL (7.4-10.4); Platelet Count 101 10x3/uL (130-400); RBC Distribution Width 13.7 % (11.5-14.5); Red Blood Cell (RBC) Count 4.23 mill/uL (4.70-6.10); White Blood Cell (WBC) Count 7.6 10x3/uL (4.8-10.8)
[2022-05-24] MEDS: Famotidine 20 MG TAB PO SCH (20:43)
[2022-05-24] MEDS: Vancomycin 1.5 GRAM/300 ML BAG 1.5 GM in Premix Bag 1 BAG IVPB SCH (21:56)
[2022-05-25 05:18] LABS: #Eosinphils 0.2 thou/uL (0.0-0.7); #Lymphocytes 0.9 thou/uL (1.20-3.40); #Monocytes 0.8 thou/uL (0.11-0.59); %Eosinophils 3.5 % (0.0-10.0); %Lymphocytes 13.3 % (21.0-51.0); %Monocytes 11.1 % (0.0-10.0); %Neutrophils 72.1 % (42.0-75.0); Hemoglobin 14.2 g/dL (14.0-18.0); Mean Corpuscular HGB CONC 32.9 g/dL (32.0-36.0); Mean Corpuscular Hemoglobin 31.9 pg (27.0-31.0); Mean Platelet Volume 9.5 fL (7.4-10.4); Platelet Count 127 10x3/uL (130-400); RBC Distribution Width 13.5 % (11.5-14.5); Red Blood Cell (RBC) Count 4.44 mill/uL (4.70-6.10)
[2022-05-25 05:47] LABS: Anion Gap 16 mmol/L (10-20); BUN (Urea Nitrogen) 41 mg/dL (8.4-25.7); Calc. Creatinine Clearance 60 mL/min (70-130); Calcium 9.4 mg/dL (7.8-10.44); Carbon Dioxide 22 mmol/L (23-31); Chloride 102 mmol/L (98-107); Estimated GFR 36; Glucose 123 mg/dL (83-110); Potassium 4.5 mmol/L (3.5-5.1); Sodium 135 mmol/L (136-145)
[2022-05-25] MEDS ORDERED: Spironolactone 25 MG TAB PO SCH (08:00)
[2022-05-25] MEDS: Cefepime 1 GM in Sodium Chloride 0.9% 100 ML IVPB SCH ×2 (08:13→21:14)
[2022-05-25] MEDS: Ipratropium Bromide 0.06% Nasal Inhaler 15ml EA NARE SCH ×3 (08:14→21:27)
[2022-05-25] MEDS: Allopurinol 100 MG TAB PO SCH (08:15)
[2022-05-25] MEDS: Sotalol HCl 80 MG TAB PO SCH ×2 (08:15→21:27)
[2022-05-25] MEDS: Torsemide 20 MG TAB PO SCH (08:15)
[2022-05-25] MEDS: Heparin 5,000 UNITS/ML VIAL SC SCH ×3 (08:15→21:27)
[2022-05-25] MEDS: Empagliflozin 10 MG TAB PO SCH (08:15)
[2022-05-25] MEDS: Atorvastatin Calcium 40 MG TAB PO SCH (08:15)
[2022-05-25] MEDS: Aspirin 81 mg Enteric Coated Tablet PO SCH (08:15)
[2022-05-25 20:29] LABS: Vancomycin, Trough 23.3 ug/mL
[2022-05-25] MEDS: Famotidine 20 MG TAB PO SCH (21:27)
[2022-05-25] MEDS: Vancomycin 1 GM in Premix Bag 1 BAG IVPB SCH (22:09)
[2022-05-26 06:02] LABS: #Eosinphils 0.2 thou/uL (0.0-0.7); #Lymphocytes 0.8 thou/uL (1.20-3.40); #Monocytes 0.8 thou/uL (0.11-0.59); #Neutrophils 4.5 thou/uL (1.40-6.50); %Basophils 0.5 % (0.0-1.0); %Eosinophils 3.5 % (0.0-10.0); %Lymphocytes 12.7 % (21.0-51.0); %Neutrophils 71.2 % (42.0-75.0); Hemoglobin 13.5 g/dL (14.0-18.0); Mean Corpuscular HGB CONC 34.8 g/dL (32.0-36.0); Mean Corpuscular Hemoglobin 33.3 pg (27.0-31.0); Mean Corpuscular Volume 95.9 fl (78.0-98.0); Mean Platelet Volume 9.3 fL (7.4-10.4); Platelet Count 117 10x3/uL (130-400); RBC Distribution Width 13.1 % (11.5-14.5); Red Blood Cell (RBC) Count 4.06 mill/uL (4.70-6.10); White Blood Cell (WBC) Count 6.4 10x3/uL (4.8-10.8)
[2022-05-26 06:23] LABS: Anion Gap 16 mmol/L (10-20); BUN (Urea Nitrogen) 39 mg/dL (8.4-25.7); Calc. Creatinine Clearance 58 mL/min (70-130); Calcium 8.9 mg/dL (7.8-10.44); Carbon Dioxide 23 mmol/L (23-31); Chloride 101 mmol/L (98-107); Estimated GFR 36; Glucose 97 mg/dL (83-110); Potassium 4.1 mmol/L (3.5-5.1); Sodium 136 mmol/L (136-145)
[2022-05-26] MEDS: Atorvastatin Calcium 40 MG TAB PO SCH (10:34)
[2022-05-26] MEDS: Sotalol HCl 80 MG TAB PO SCH ×2 (10:34→20:22)
[2022-05-26] MEDS: Cefepime 1 GM in Sodium Chloride 0.9% 100 ML IVPB SCH ×2 (10:34→20:21)
[2022-05-26] MEDS: Aspirin 81 mg Enteric Coated Tablet PO SCH (10:34)
[2022-05-26] MEDS: Torsemide 20 MG TAB PO SCH (10:35)
[2022-05-26] MEDS: Ipratropium Bromide 0.06% Nasal Inhaler 15ml EA NARE SCH ×3 (10:35→20:22)
[2022-05-26] MEDS: Empagliflozin 10 MG TAB PO SCH (10:35)
[2022-05-26] MEDS: Heparin 5,000 UNITS/ML VIAL SC SCH ×3 (10:35→20:22)
[2022-05-26] MEDS: Allopurinol 100 MG TAB PO SCH (10:36)
[2022-05-26] MEDS: Spironolactone 25 MG TAB PO SCH (10:40)
[2022-05-26] MEDS: Famotidine 20 MG TAB PO SCH (20:22)
[2022-05-26] MEDS: Vancomycin 1 GM in Premix Bag 1 BAG IVPB SCH (21:35)
[2022-05-26] MEDS ORDERED: Senokot S 8.6-50 MG TAB PO SCH (22:15)
[2022-05-26] MEDS ORDERED: tiZANidine HCl 4 MG TAB PO SCH (22:30)
[2022-05-27 05:22] LABS: #Eosinphils 0.3 thou/uL (0.0-0.7); #Lymphocytes 0.9 thou/uL (1.20-3.40); #Monocytes 0.7 thou/uL (0.11-0.59); #Neutrophils 4.7 thou/uL (1.40-6.50); %Basophils 0.7 % (0.0-1.0); %Eosinophils 4.1 % (0.0-10.0); %Monocytes 10.6 % (0.0-10.0); %Neutrophils 70.5 % (42.0-75.0); Hemoglobin 12.9 g/dL (14.0-18.0); Mean Corpuscular Hemoglobin 31.8 pg (27.0-31.0); Mean Corpuscular Volume 96.5 fl (78.0-98.0); Mean Platelet Volume 9.6 fL (7.4-10.4); Platelet Count 142 10x3/uL (130-400); RBC Distribution Width 13.3 % (11.5-14.5); Red Blood Cell (RBC) Count 4.07 mill/uL (4.70-6.10); White Blood Cell (WBC) Count 6.7 10x3/uL (4.8-10.8)
[2022-05-27 05:40] LABS: Albumin 3.7 g/dL (3.4-4.8); Anion Gap 13 mmol/L (10-20); BUN (Urea Nitrogen) 36 mg/dL (8.4-25.7); BUN/Creatinine Ratio 19.05; Calc. Creatinine Clearance 57 mL/min (70-130); Carbon Dioxide 26 mmol/L (23-31); Chloride 102 mmol/L (98-107); Estimated GFR 36; Glucose 102 mg/dL (83-110); Phosphorus 4.1 mg/dL (2.3-4.7); Sodium 137 mmol/L (136-145)
[2022-05-27] MEDS: Heparin 5,000 UNITS/ML VIAL SC SCH ×3 (09:36→19:44)
[2022-05-27] MEDS: Senokot S 8.6-50 MG TAB PO SCH ×2 (09:36→21:00)
[2022-05-27] MEDS: Cefepime 1 GM in Sodium Chloride 0.9% 100 ML IVPB SCH ×2 (09:36→20:58)
[2022-05-27] MEDS: Allopurinol 100 MG TAB PO SCH (09:36)
[2022-05-27] MEDS: Atorvastatin Calcium 40 MG TAB PO SCH (09:36)
[2022-05-27] MEDS: Aspirin 81 mg Enteric Coated Tablet PO SCH (09:36)
[2022-05-27] MEDS: Torsemide 20 MG TAB PO SCH (09:36)
[2022-05-27] MEDS: Empagliflozin 10 MG TAB PO SCH (09:36)
[2022-05-27] MEDS: Spironolactone 25 MG TAB PO SCH (09:36)
[2022-05-27] MEDS: Ipratropium Bromide 0.06% Nasal Inhaler 15ml EA NARE SCH ×3 (09:37→21:00)
[2022-05-27] MEDS: Sotalol HCl 80 MG TAB PO SCH ×2 (09:37→20:59)
[2022-05-27 20:19] LABS: Vancomycin, Trough 23.1 ug/mL
[2022-05-27] MEDS: Famotidine 20 MG TAB PO SCH (21:00)
[2022-05-27] MEDS ORDERED: Vancomycin HCl 750 MG in Sodium Chloride 0.9% 250 ML 250 ML IVPB SCH (23:59)
[2022-05-28 04:45] LABS: #Eosinphils 0.4 thou/uL (0.0-0.7); #Monocytes 0.8 thou/uL (0.11-0.59); #Neutrophils 5.9 thou/uL (1.40-6.50); %Basophils 0.5 % (0.0-1.0); %Eosinophils 4.6 % (0.0-10.0); %Lymphocytes 12.1 % (21.0-51.0); %Monocytes 9.9 % (0.0-10.0); %Neutrophils 72.8 % (42.0-75.0); Hemoglobin 13.2 g/dL (14.0-18.0); Mean Corpuscular HGB CONC 32.7 g/dL (32.0-36.0); Mean Corpuscular Hemoglobin 31.6 pg (27.0-31.0); Mean Corpuscular Volume 96.8 fl (78.0-98.0); Platelet Count 148 10x3/uL (130-400); RBC Distribution Width 13.4 % (11.5-14.5); Red Blood Cell (RBC) Count 4.17 mill/uL (4.70-6.10)
[2022-05-28 06:08] LABS: Anion Gap 13 mmol/L (10-20); BUN (Urea Nitrogen) 34 mg/dL (8.4-25.7); Calc. Creatinine Clearance 175 mL/min (70-130); Carbon Dioxide 27 mmol/L (23-31); Chloride 100 mmol/L (98-107); Estimated GFR 37; Glucose 96 mg/dL (83-110); Sodium 136 mmol/L (136-145)
[2022-05-28 07:46] VITALS: TEMP 98.8
[2022-05-28 08:03] VITALS: BP 124/63
[2022-05-28] MEDS: Spironolactone 25 MG TAB PO SCH (08:03)
[2022-05-28] MEDS: Empagliflozin 10 MG TAB PO SCH (08:03)
[2022-05-28] MEDS: Senokot S 8.6-50 MG TAB PO SCH (08:03)
[2022-05-28] MEDS: Heparin 5,000 UNITS/ML VIAL SC SCH (08:03)
[2022-05-28] MEDS: Atorvastatin Calcium 40 MG TAB PO SCH (08:03)
[2022-05-28] MEDS: Torsemide 20 MG TAB PO SCH (08:03)
[2022-05-28] MEDS: Aspirin 81 mg Enteric Coated Tablet PO SCH (08:03)
[2022-05-28] MEDS: Sotalol HCl 80 MG TAB PO SCH (08:03)
[2022-05-28] MEDS: Allopurinol 100 MG TAB PO SCH (08:04)
[2022-05-28] MEDS: Ipratropium Bromide 0.06% Nasal Inhaler 15ml EA NARE SCH (08:12)
== END 2022-05-28 10:38 | disposition home or self-care (01) | DRG 871 ==
LOC: ERS 17:15 → ERHOLD 19:52 → 2SW 05-22 14:11
PROVIDERS: ADMIT Internal Medicine; ATTEND Internal Medicine
PROC: 3E03329 Introduction of Other Anti-infective into Peripheral Vein, Percutaneous Approach (ICD-10-PCS; principal; 2022-05-21)
PROC: 5A09557 Assistance with Respiratory Ventilation, Greater than 96 Consecutive Hours, Continuous Positive Airway Pressure (ICD-10-PCS; 2022-05-22)
DX: A41.9 Sepsis, unspecified organism (principal); I21.A1 Myocardial infarction type 2; I50.33 Acute on chronic diastolic (congestive) heart failure; L03.116 Cellulitis of left lower limb; I13.0 Hypertensive heart and chronic kidney disease with heart failure and stage 1 through stage 4 chronic kidney disease, or unspecified chronic kidney disease; N18.4 Chronic kidney disease, stage 4 (severe); Z68.45 Body mass index [BMI] 70 or greater, adult; E66.2 Morbid (severe) obesity with alveolar hypoventilation; J96.10 Chronic respiratory failure, unspecified whether with hypoxia or hypercapnia; N30.00 Acute cystitis without hematuria; I25.10 Atherosclerotic heart disease of native coronary artery without angina pectoris; E11.22 Type 2 diabetes mellitus with diabetic chronic kidney disease; R65.20 Severe sepsis without septic shock; R33.9 Retention of urine, unspecified; I48.0 Paroxysmal atrial fibrillation; I89.0 Lymphedema, not elsewhere classified; J44.9 Chronic obstructive pulmonary disease, unspecified; E78.2 Mixed hyperlipidemia; Z95.1 Presence of aortocoronary bypass graft; Z99.89 Dependence on other enabling machines and devices; Z90.09 Acquired absence of other part of head and neck; Z99.81 Dependence on supplemental oxygen; Z79.51 Long term (current) use of inhaled steroids; Z79.01 Long term (current) use of anticoagulants; Z79.82 Long term (current) use of aspirin; Z79.899 Other long term (current) drug therapy
CPT/HCPCS: 36415; 36416; 51701; 71045; 80048; 80053; 80069; 80202; 81003; 81015; 82553; 82570; 83605; 83735; 83880; 83935; 84145; 84156; 84300; 84484; 84540; 85025; 85610; 85652; 85730; 86140; 87040; 87077; 87086; 87186; 87811; 93005; 93306; 93923; 94640; 94660; 94760; 96361; 96365; 96366; 96375; 97139; J0692; J1644; J3370; J3490; J7050; J7611; J7620; P9047; U0002

== ENCOUNTER 2022-07-23 12:30 | Outpatient (CLI) | payer MEDICARE, BC | END 2022-07-23 12:31 | disposition home or self-care (01) | LOC: BICCT 12:30 | PROVIDERS: ATTEND Urology | DX: N18.5 Chronic kidney disease, stage 5 (principal); N28.89 Other specified disorders of kidney and ureter | CPT/HCPCS: 36415; 74176; 80053; 81001; 83970; 84100; 85025 ==

== ENCOUNTER 2023-02-23 09:54 | Inpatient (IN) | payer MEDICARE, BC ==
[2023-02-23 10:28] LABS: #Basophils 0.1 thou/uL (0.0-0.2); #Eosinphils 0.2 thou/uL (0.0-0.7); #Monocytes 0.7 thou/uL (0.11-0.59); #Neutrophils 6.8 thou/uL (1.40-6.50); %Basophils 0.6 % (0.0-1.0); %Eosinophils 2.1 % (0.0-10.0); %Lymphocytes 8.4 % (21.0-51.0); %Monocytes 8.4 % (0.0-10.0); %Neutrophils 80.3 % (42.0-75.0); Hematocrit 44.1 % (42.0-52.0); Hemoglobin 14.8 g/dL (14.0-18.0); Mean Corpuscular HGB CONC 33.6 g/dL (32.0-36.0); Mean Corpuscular Hemoglobin 30.8 pg (27.0-31.0); Mean Corpuscular Volume 91.7 fl (78.0-98.0); Mean Platelet Volume 11.8 fL (7.4-10.4); Platelet Count 145 10x3/uL (130-400); RBC Distribution Width 14.9 % (11.5-14.5); Red Blood Cell (RBC) Count 4.81 mill/uL (4.70-6.10); White Blood Cell (WBC) Count 8.4 10x3/uL (4.8-10.8)
[2023-02-23 10:56] LABS: Troponin I 0.068 ng/mL (< 0.028)
[2023-02-23 11:47] LABS: ALT (SGPT) 9 U/L (8-55); AST (SGOT) 13 U/L (5-34); Albumin 4.4 g/dL (3.4-4.8); Alkaline Phosphatase 59 U/L (40-110); Anion Gap 18 mmol/L (10-20); Bilirubin, Total 0.9 mg/dL (0.2-1.2); Calc. Creatinine Clearance 0 mL/min (70-130); Calcium 9.4 mg/dL (7.8-10.44); Carbon Dioxide 21 mmol/L (23-31); Chloride 95 mmol/L (98-107); Estimated GFR 23; Globulin 2.6 g/dL (2.4-3.5); Glucose 115 mg/dL (83-110); Lipase 52 U/L (8-78); Potassium 4.8 mmol/L (3.5-5.1); Sodium 129 mmol/L (136-145)
[2023-02-23 12:01] LABS: BUN (Urea Nitrogen) 43 mg/dL (8.4-25.7)
[2023-02-23] MEDS ORDERED: Furosemide 40 MG/4 ML VIAL ONE (12:01)
[2023-02-23 12:18] LABS: Magnesium 2.1 mg/dL (1.6-2.6)
[2023-02-23] MEDS ORDERED: Bisacodyl 5 MG TAB PO PRN (12:49)
[2023-02-23] MEDS ORDERED: Ondansetron PF 4 MG/2 ML Vial IVP PRN (12:49)
[2023-02-23] MEDS ORDERED: Ipratropium/Albuterol 3 ML NEB NEB PRN (13:04)
[2023-02-23 13:53] LABS: Troponin I 0.074 ng/mL (< 0.028)
[2023-02-23] MEDS: Ipratropium/Albuterol 3 ML NEB NEB SCH ×2 (15:00→19:17)
[2023-02-23 16:42] LABS: Troponin I 0.067 ng/mL (< 0.028)
[2023-02-23] MEDS: Albumin 25% 25 GM/100 ML BOT IVPB SCH ×2 (16:48→21:55)
[2023-02-23] MEDS: Furosemide 40 MG TAB PO SCH (16:48)
[2023-02-23] MEDS: Apixaban 2.5 MG TAB PO SCH (21:56)
[2023-02-24] MEDS: Albumin 25% 25 GM/100 ML BOT IVPB SCH ×2 (03:07→09:37)
[2023-02-24] MEDS: Ipratropium/Albuterol 3 ML NEB NEB SCH ×4 (07:10→18:40)
[2023-02-24 07:36] LABS: #Basophils 0.1 thou/uL (0.0-0.2); #Eosinphils 0.1 thou/uL (0.0-0.7); #Monocytes 0.7 thou/uL (0.11-0.59); #Neutrophils 6.5 thou/uL (1.40-6.50); %Basophils 0.6 % (0.0-1.0); %Eosinophils 1.4 % (0.0-10.0); %Lymphocytes 7.2 % (21.0-51.0); %Monocytes 8.5 % (0.0-10.0); Hematocrit 40.4 % (42.0-52.0); Hemoglobin 13.6 g/dL (14.0-18.0); Mean Corpuscular HGB CONC 33.7 g/dL (32.0-36.0); Mean Corpuscular Hemoglobin 31.2 pg (27.0-31.0); Mean Corpuscular Volume 92.7 fl (78.0-98.0); Mean Platelet Volume 11.5 fL (7.4-10.4); Platelet Count 122 10x3/uL (130-400); RBC Distribution Width 14.8 % (11.5-14.5); Red Blood Cell (RBC) Count 4.36 mill/uL (4.70-6.10); White Blood Cell (WBC) Count 7.9 10x3/uL (4.8-10.8)
[2023-02-24 07:57] LABS: Anion Gap 15 mmol/L (10-20); BUN (Urea Nitrogen) 40 mg/dL (8.4-25.7); Calc. Creatinine Clearance 49 mL/min (70-130); Calcium 9.5 mg/dL (7.8-10.44); Carbon Dioxide 22 mmol/L (23-31); Chloride 97 mmol/L (98-107); Estimated GFR 27; Glucose 96 mg/dL (83-110); Potassium 4.5 mmol/L (3.5-5.1); Sodium 129 mmol/L (136-145)
[2023-02-24 08:51] LABS: CellaVision Operator ID LAB.GE; Platelet Adequacy Comment Platelets Decreased; Polychromasia SLIGHT = 2-3 cells HPF (0-2)
[2023-02-24] MEDS ORDERED: Sacubitril 24MG/Valsartan 26 MG TAB PO SCH (09:00)
[2023-02-24] MEDS: Apixaban 2.5 MG TAB PO SCH ×2 (09:02→21:41)
[2023-02-24] MEDS: Famotidine 20 MG TAB PO SCH (09:02)
[2023-02-24] MEDS: Furosemide 40 MG TAB PO SCH ×2 (09:02→14:27)
[2023-02-24] MEDS ORDERED: Albumin 25% 25 GM/100 ML BOT IVPB SCH (09:15)
[2023-02-24] MEDS: Sotalol HCl 80 MG TAB PO SCH ×2 (10:21→21:42)
[2023-02-24] MEDS: Sacubitril 24MG/Valsartan 26 MG TAB PO SCH ×2 (10:21→21:41)
[2023-02-24] MEDS: Spironolactone 25 MG TAB PO SCH (10:22)
[2023-02-24] MEDS: Aspirin 81 mg Enteric Coated Tablet PO SCH (10:22)
[2023-02-24] MEDS: Calcitriol 0.25 MCG CAP PO SCH (10:22)
[2023-02-24] MEDS: HYDROcodone/Acetaminophen 5/325 mg Tablet PO PRN (11:36)
[2023-02-24] MEDS ORDERED: Non-Formulary Item 1 EACH (Atorvastatin Calcium [Atorvastatin Calcium] 80 MG Tablet) PO SCH (21:00)
[2023-02-24] MEDS: Atorvastatin Calcium 40 MG TAB PO SCH (21:45)
[2023-02-25] MEDS: Ipratropium/Albuterol 3 ML NEB NEB SCH ×6 (01:17→18:41)
[2023-02-25] MEDS ORDERED: Albuterol 200 PUFF (6.7GM INHALER) INH PRN (03:14)
[2023-02-25 04:23] LABS: #Basophils 0.1 thou/uL (0.0-0.2); #Eosinphils 0.1 thou/uL (0.0-0.7); #Monocytes 0.9 thou/uL (0.11-0.59); %Basophils 0.5 % (0.0-1.0); %Eosinophils 0.5 % (0.0-10.0); %Lymphocytes 6.3 % (21.0-51.0); %Monocytes 8.9 % (0.0-10.0); %Neutrophils 83.4 % (42.0-75.0); Hematocrit 41.3 % (42.0-52.0); Hemoglobin 13.5 g/dL (14.0-18.0); Mean Corpuscular HGB CONC 32.7 g/dL (32.0-36.0); Mean Corpuscular Hemoglobin 30.4 pg (27.0-31.0); Mean Platelet Volume 10.9 fL (7.4-10.4); Platelet Count 114 10x3/uL (130-400); RBC Distribution Width 14.9 % (11.5-14.5); Red Blood Cell (RBC) Count 4.44 mill/uL (4.70-6.10); White Blood Cell (WBC) Count 9.6 10x3/uL (4.8-10.8)
[2023-02-25 04:44] LABS: Anion Gap 19 mmol/L (10-20); BUN (Urea Nitrogen) 44 mg/dL (8.4-25.7); Calc. Creatinine Clearance 46 mL/min (70-130); Calcium 9.6 mg/dL (7.8-10.44); Carbon Dioxide 22 mmol/L (23-31); Chloride 94 mmol/L (98-107); Estimated GFR 25; Glucose 98 mg/dL (83-110); Potassium 4.6 mmol/L (3.5-5.1); Sodium 130 mmol/L (136-145)
[2023-02-25 05:37] LABS: Bacteria/HPF None Seen HPF (None Seen); Bilirubin Negative (Negative); Blood, Urine 3+ (Negative); CAUTI Indications for Culture Acute Hematuria; Clarity Turbid (Clear); Glucose, Urine (Dipstick) Normal (Negative); Ketone, Urine Negative (Negative); Leukocyte 500 Leu/uL (Negative); Nitrite Negative (Negative); Protein, Urine (Dipstick) 50 mg/dL (Neg-Trace); RBC/HPF Greater than 50 HPF (0-3); Specific Gravity, Urine 1.009 (1.002-1.036); Squamous Epithelial None Seen HPF (0-3); Urobilinogen Normal mg/dL (Less than 2); WBC/HPF Greater than 50 HPF (0-3)
[2023-02-25 05:42] LABS: Urine Culture Reflex Yes Yes
[2023-02-25] MEDS: Sacubitril 24MG/Valsartan 26 MG TAB PO SCH ×2 (08:28→22:15)
[2023-02-25] MEDS: Aspirin 81 mg Enteric Coated Tablet PO SCH (08:28)
[2023-02-25] MEDS: Sotalol HCl 80 MG TAB PO SCH ×2 (08:29→22:16)
[2023-02-25] MEDS: Calcitriol 0.25 MCG CAP PO SCH (08:30)
[2023-02-25] MEDS: Apixaban 2.5 MG TAB PO SCH ×2 (08:31→22:15)
[2023-02-25] MEDS: Famotidine 20 MG TAB PO SCH (08:32)
[2023-02-25] MEDS: Furosemide 40 MG TAB PO SCH ×2 (08:32→14:35)
[2023-02-25] MEDS: Spironolactone 25 MG TAB PO SCH (08:33)
[2023-02-25] MEDS ORDERED: Non-Formulary Item 1 EACH (Tiotropium [Spiriva Handihaler] 18 MCG Box) INH SCH (09:00)
[2023-02-25] MEDS: Albumin 25% 25 GM/100 ML BOT IVPB SCH ×2 (11:20→17:03)
[2023-02-25] MEDS: Atorvastatin Calcium 40 MG TAB PO SCH (22:16)
[2023-02-26] MEDS: Albumin 25% 25 GM/100 ML BOT IVPB SCH ×2 (00:37→06:40)
[2023-02-26 06:29] LABS: Anion Gap 4 mmol/L (10-20); BUN (Urea Nitrogen) 52 mg/dL (8.4-25.7); Calc. Creatinine Clearance 43 mL/min (70-130); Calcium 9.5 mg/dL (7.8-10.44); Carbon Dioxide 21 mmol/L (23-31); Chloride 100 mmol/L (98-107); Estimated GFR 24; Glucose 94 mg/dL (83-110); Potassium 4.1 mmol/L (3.5-5.1); Sodium 121 mmol/L (136-145)
[2023-02-26] MEDS: Ipratropium/Albuterol 3 ML NEB NEB SCH ×4 (07:37→18:15)
[2023-02-26] MEDS: Famotidine 20 MG TAB PO SCH (10:36)
[2023-02-26] MEDS: Calcitriol 0.25 MCG CAP PO SCH (10:36)
[2023-02-26] MEDS: Sotalol HCl 80 MG TAB PO SCH ×2 (10:37→22:09)
[2023-02-26] MEDS: Apixaban 2.5 MG TAB PO SCH ×2 (10:37→22:06)
[2023-02-26] MEDS: Aspirin 81 mg Enteric Coated Tablet PO SCH (10:38)
[2023-02-26] MEDS: Furosemide 40 MG TAB PO SCH ×2 (10:38→15:56)
[2023-02-26] MEDS: Sacubitril 24MG/Valsartan 26 MG TAB PO SCH ×2 (10:38→22:09)
[2023-02-26] MEDS: HYDROcodone/Acetaminophen 5/325 mg Tablet PO PRN (10:40)
[2023-02-26] MEDS: Arformoterol 15 MCG/2 ML NEB NEB SCH (18:15)
[2023-02-26] MEDS: Atorvastatin Calcium 40 MG TAB PO SCH (22:05)
[2023-02-27 04:52] LABS: #Eosinphils 0.2 thou/uL (0.0-0.7); #Neutrophils 6.5 thou/uL (1.40-6.50); %Basophils 0.4 % (0.0-1.0); %Eosinophils 2.4 % (0.0-10.0); %Lymphocytes 7.2 % (21.0-51.0); %Monocytes 11.4 % (0.0-10.0); %Neutrophils 78.2 % (42.0-75.0); Hematocrit 38.2 % (42.0-52.0); Hemoglobin 12.6 g/dL (14.0-18.0); Mean Corpuscular Volume 94.1 fl (78.0-98.0); Mean Platelet Volume 11.4 fL (7.4-10.4); RBC Distribution Width 14.9 % (11.5-14.5); Red Blood Cell (RBC) Count 4.06 mill/uL (4.70-6.10); White Blood Cell (WBC) Count 8.3 10x3/uL (4.8-10.8)
[2023-02-27 04:53] LABS: Platelet Count 112 10x3/uL (130-400)
[2023-02-27 05:16] LABS: Anion Gap 15 mmol/L (10-20); BUN (Urea Nitrogen) 62 mg/dL (8.4-25.7); Calc. Creatinine Clearance 35 mL/min (70-130); Calcium 9.3 mg/dL (7.8-10.44); Carbon Dioxide 26 mmol/L (23-31); Chloride 92 mmol/L (98-107); Estimated GFR 18; Glucose 97 mg/dL (83-110); Potassium 4.9 mmol/L (3.5-5.1); Sodium 128 mmol/L (136-145)
[2023-02-27] MEDS: Ipratropium/Albuterol 3 ML NEB NEB SCH ×4 (07:16→18:05)
[2023-02-27] MEDS: Arformoterol 15 MCG/2 ML NEB NEB SCH ×2 (07:17→18:05)
[2023-02-27] MEDS: Fish Oil 1,000 MG CAP PO SCH (09:58)
[2023-02-27] MEDS: Calcitriol 0.25 MCG CAP PO SCH (09:58)
[2023-02-27] MEDS: Apixaban 2.5 MG TAB PO SCH ×2 (09:58→20:37)
[2023-02-27] MEDS: Aspirin 81 mg Enteric Coated Tablet PO SCH (09:58)
[2023-02-27] MEDS: Famotidine 20 MG TAB PO SCH (09:59)
[2023-02-27] MEDS: Atorvastatin Calcium 40 MG TAB PO SCH (20:37)
[2023-02-28] MEDS: HYDROcodone/Acetaminophen 5/325 mg Tablet PO PRN ×2 (01:24→11:12)
[2023-02-28 05:08] LABS: #Eosinphils 0.1 thou/uL (0.0-0.7); #Monocytes 0.8 thou/uL (0.11-0.59); #Neutrophils 7.2 thou/uL (1.40-6.50); %Basophils 0.3 % (0.0-1.0); %Eosinophils 1.3 % (0.0-10.0); %Lymphocytes 5.9 % (21.0-51.0); %Monocytes 9.2 % (0.0-10.0); Hematocrit 39.9 % (42.0-52.0); Hemoglobin 13.3 g/dL (14.0-18.0); Mean Corpuscular HGB CONC 33.3 g/dL (32.0-36.0); Mean Corpuscular Hemoglobin 30.9 pg (27.0-31.0); Mean Corpuscular Volume 92.6 fl (78.0-98.0); Mean Platelet Volume 11.3 fL (7.4-10.4); Platelet Count 127 10x3/uL (130-400); RBC Distribution Width 14.9 % (11.5-14.5); Red Blood Cell (RBC) Count 4.31 mill/uL (4.70-6.10); White Blood Cell (WBC) Count 8.7 10x3/uL (4.8-10.8)
[2023-02-28 05:26] LABS: Anion Gap 18 mmol/L (10-20); BUN (Urea Nitrogen) 68 mg/dL (8.4-25.7); Calc. Creatinine Clearance 34 mL/min (70-130); Calcium 9.4 mg/dL (7.8-10.44); Carbon Dioxide 19 mmol/L (23-31); Chloride 93 mmol/L (98-107); Estimated GFR 17; Glucose 115 mg/dL (83-110); Potassium 4.7 mmol/L (3.5-5.1); Sodium 125 mmol/L (136-145)
[2023-02-28] MEDS: Ipratropium/Albuterol 3 ML NEB NEB SCH ×4 (07:31→19:03)
[2023-02-28] MEDS: Arformoterol 15 MCG/2 ML NEB NEB SCH ×2 (07:32→19:04)
[2023-02-28] MEDS: Sodium Chloride 0.9% 1,000 ML IV SCH (09:02)
[2023-02-28] MEDS: Apixaban 2.5 MG TAB PO SCH ×2 (09:06→20:58)
[2023-02-28] MEDS: Famotidine 20 MG TAB PO SCH (09:14)
[2023-02-28] MEDS: Aspirin 81 mg Enteric Coated Tablet PO SCH (09:14)
[2023-02-28] MEDS: Calcitriol 0.25 MCG CAP PO SCH (09:15)
[2023-02-28] MEDS: Fish Oil 1,000 MG CAP PO SCH (09:15)
[2023-02-28 11:46] LABS: Bacteria/HPF None Seen HPF (None Seen); Bilirubin Negative (Negative); Blood, Urine 2+ (Negative); Clarity Clear (Clear); Glucose, Urine (Dipstick) Normal (Negative); Ketone, Urine Negative (Negative); Leukocyte Negative Leu/uL (Negative); Nitrite Negative (Negative); Protein, Urine (Dipstick) 30 mg/dL (Neg-Trace); Specific Gravity, Urine 1.014 (1.002-1.036); Squamous Epithelial None Seen HPF (0-3); Urobilinogen Normal mg/dL (Less than 2)
[2023-02-28] MEDS: Atorvastatin Calcium 40 MG TAB PO SCH (20:58)
[2023-03-01 05:15] LABS: #Eosinphils 0.2 thou/uL (0.0-0.7); #Monocytes 0.9 thou/uL (0.11-0.59); #Neutrophils 7.1 thou/uL (1.40-6.50); %Basophils 0.3 % (0.0-1.0); %Eosinophils 2.3 % (0.0-10.0); %Lymphocytes 5.3 % (21.0-51.0); %Monocytes 10.3 % (0.0-10.0); %Neutrophils 81.5 % (42.0-75.0); Hematocrit 40.3 % (42.0-52.0); Hemoglobin 13.5 g/dL (14.0-18.0); Mean Corpuscular HGB CONC 33.5 g/dL (32.0-36.0); Mean Corpuscular Hemoglobin 30.9 pg (27.0-31.0); Mean Corpuscular Volume 92.2 fl (78.0-98.0); Mean Platelet Volume 11.7 fL (7.4-10.4); Platelet Count 120 10x3/uL (130-400); RBC Distribution Width 15.3 % (11.5-14.5); Red Blood Cell (RBC) Count 4.37 mill/uL (4.70-6.10); White Blood Cell (WBC) Count 8.8 10x3/uL (4.8-10.8)
[2023-03-01 05:32] LABS: Anion Gap 16 mmol/L (10-20); BUN (Urea Nitrogen) 72 mg/dL (8.4-25.7); Calc. Creatinine Clearance 33 mL/min (70-130); Calcium 9.4 mg/dL (7.8-10.44); Carbon Dioxide 23 mmol/L (23-31); Chloride 92 mmol/L (98-107); Estimated GFR 17; Glucose 121 mg/dL (83-110); Potassium 4.6 mmol/L (3.5-5.1); Sodium 126 mmol/L (136-145)
[2023-03-01] MEDS: Ipratropium/Albuterol 3 ML NEB NEB SCH ×4 (07:45→18:49)
[2023-03-01] MEDS: Arformoterol 15 MCG/2 ML NEB NEB SCH ×2 (07:55→18:49)
[2023-03-01] MEDS: Calcitriol 0.25 MCG CAP PO SCH (08:38)
[2023-03-01] MEDS: Famotidine 20 MG TAB PO SCH (08:39)
[2023-03-01] MEDS: Aspirin 81 mg Enteric Coated Tablet PO SCH (08:39)
[2023-03-01] MEDS: Fish Oil 1,000 MG CAP PO SCH (08:39)
[2023-03-01] MEDS: Sodium Chloride 0.9% 1,000 ML IV SCH (10:46)
[2023-03-01 12:39] LABS: HBSAB Concentration Less than 8.00 mIU/mL; HBSAg Index 0.27 S/CO (0-0.99); Hep B Core Total Ab Non-Reactive (NonReactive); Hep B Core Total Index 0.16 S/CO (0-0.79); Hep B Surf Ag Non-Reactive S/CO (NonReactive); Hep C IgG Ab Non-Reactive S/CO (NonReactive); Hep C Index 0.05 S/CO (0-0.79)
[2023-03-01 12:41] LABS: Hep B Surf AB Non-Reactive (NonReactive)
[2023-03-01 14:59] LABS: Creatinine, Urine 243.63 mg/dL (63-166); Protein, Urine Random Quant 102 mg/dL (1-14); Sodium, Urine Less than 20 mmol/L (Not Available); Urea Nitrogen, Random Urine 459 mg/dl
[2023-03-01] MEDS: Atorvastatin Calcium 40 MG TAB PO SCH (22:13)
[2023-03-01] MEDS: Acetaminophen 325 MG TAB PO PRN (22:13)
[2023-03-02 05:13] LABS: #Basophils 0.1 thou/uL (0.0-0.2); #Eosinphils 0.1 thou/uL (0.0-0.7); #Monocytes 0.8 thou/uL (0.11-0.59); #Neutrophils 6.9 thou/uL (1.40-6.50); %Basophils 0.6 % (0.0-1.0); %Eosinophils 1.7 % (0.0-10.0); %Lymphocytes 5.6 % (21.0-51.0); %Monocytes 9.3 % (0.0-10.0); %Neutrophils 82.4 % (42.0-75.0); Hematocrit 39.4 % (42.0-52.0); Hemoglobin 13.1 g/dL (14.0-18.0); Mean Corpuscular HGB CONC 33.2 g/dL (32.0-36.0); Mean Corpuscular Hemoglobin 30.7 pg (27.0-31.0); Mean Corpuscular Volume 92.3 fl (78.0-98.0); Mean Platelet Volume 11.8 fL (7.4-10.4); RBC Distribution Width 15.1 % (11.5-14.5); Red Blood Cell (RBC) Count 4.27 mill/uL (4.70-6.10); White Blood Cell (WBC) Count 8.4 10x3/uL (4.8-10.8)
[2023-03-02 05:35] LABS: Chloride 94 mmol/L (98-107); Potassium 4.1 mmol/L (3.5-5.1); Sodium 128 mmol/L (136-145)
[2023-03-02 05:36] LABS: Anion Gap 13 mmol/L (10-20); BUN (Urea Nitrogen) 58 mg/dL (8.4-25.7); Calc. Creatinine Clearance 39 mL/min (70-130); Calcium 9.1 mg/dL (7.8-10.44); Carbon Dioxide 25 mmol/L (23-31); Estimated GFR 20; Glucose 103 mg/dL (83-110)
[2023-03-02 05:40] LABS: Platelet Count 116 10x3/uL (130-400)
[2023-03-02] MEDS: Aspirin 81 mg Enteric Coated Tablet PO SCH (08:57)
[2023-03-02] MEDS: Arformoterol 15 MCG/2 ML NEB NEB SCH ×2 (08:57→18:56)
[2023-03-02] MEDS: Famotidine 20 MG TAB PO SCH (08:57)
[2023-03-02] MEDS: Calcitriol 0.25 MCG CAP PO SCH (08:57)
[2023-03-02] MEDS: Fish Oil 1,000 MG CAP PO SCH (08:57)
[2023-03-02] MEDS: Ipratropium/Albuterol 3 ML NEB NEB SCH ×4 (08:58→18:57)
[2023-03-02] MEDS: Apixaban 2.5 MG TAB PO SCH ×2 (09:29→23:48)
[2023-03-02] MEDS ORDERED: Heparin 10,000 UNITS/ 10 ML VIAL ONE (12:39)
[2023-03-02] MEDS: Atorvastatin Calcium 40 MG TAB PO SCH (23:47)
[2023-03-03] MEDS: Ipratropium/Albuterol 3 ML NEB NEB SCH ×4 (07:21→18:57)
[2023-03-03] MEDS: Arformoterol 15 MCG/2 ML NEB NEB SCH ×2 (07:21→18:56)
[2023-03-03] MEDS ORDERED: Tuberculin PPD 0.1 ML VIAL I-DERMAL SCH (07:30)
[2023-03-03 10:07] LABS: Anion Gap 15 mmol/L (10-20); BUN (Urea Nitrogen) 42 mg/dL (8.4-25.7); Calc. Creatinine Clearance 41 mL/min (70-130); Calcium 9.1 mg/dL (7.8-10.44); Carbon Dioxide 24 mmol/L (23-31); Chloride 94 mmol/L (98-107); Estimated GFR 23; Glucose 113 mg/dL (83-110); Potassium 3.9 mmol/L (3.5-5.1); Sodium 129 mmol/L (136-145)
[2023-03-03] MEDS: Famotidine 20 MG TAB PO SCH (10:47)
[2023-03-03] MEDS: Apixaban 2.5 MG TAB PO SCH ×2 (10:47→21:52)
[2023-03-03] MEDS: Acetaminophen 325 MG TAB PO PRN ×2 (10:50→21:52)
[2023-03-03] MEDS: Fish Oil 1,000 MG CAP PO SCH (10:52)
[2023-03-03] MEDS: Aspirin 81 mg Enteric Coated Tablet PO SCH (10:53)
[2023-03-03] MEDS: Calcitriol 0.25 MCG CAP PO SCH (10:53)
[2023-03-03] MEDS ORDERED: DOBUTamine 500 mg/250 ml 500 MG in Premix Bag 1 BAG IVPB SCH (19:15)
[2023-03-03] MEDS ORDERED: Magnesium Oxide 400 MG TAB PO SCH (19:15)
[2023-03-03] MEDS: Atorvastatin Calcium 40 MG TAB PO SCH (21:52)
[2023-03-04] MEDS: Ipratropium/Albuterol 3 ML NEB NEB SCH ×4 (07:51→18:35)
[2023-03-04] MEDS: Arformoterol 15 MCG/2 ML NEB NEB SCH ×2 (07:54→18:34)
[2023-03-04 08:12] LABS: #Eosinphils 0.2 thou/uL (0.0-0.7); #Monocytes 0.8 thou/uL (0.11-0.59); #Neutrophils 6.1 thou/uL (1.40-6.50); %Basophils 0.5 % (0.0-1.0); %Lymphocytes 6.4 % (21.0-51.0); %Monocytes 10.6 % (0.0-10.0); %Neutrophils 80.1 % (42.0-75.0); Hematocrit 37.8 % (42.0-52.0); Hemoglobin 12.6 g/dL (14.0-18.0); Mean Corpuscular HGB CONC 33.3 g/dL (32.0-36.0); Mean Corpuscular Hemoglobin 30.9 pg (27.0-31.0); Mean Corpuscular Volume 92.6 fl (78.0-98.0); Mean Platelet Volume 11.3 fL (7.4-10.4); Platelet Count 102 10x3/uL (130-400); RBC Distribution Width 15.4 % (11.5-14.5); Red Blood Cell (RBC) Count 4.08 mill/uL (4.70-6.10); White Blood Cell (WBC) Count 7.7 10x3/uL (4.8-10.8)
[2023-03-04] MEDS: Famotidine 20 MG TAB PO SCH (08:28)
[2023-03-04] MEDS: Calcitriol 0.25 MCG CAP PO SCH (08:29)
[2023-03-04] MEDS: Apixaban 2.5 MG TAB PO SCH ×2 (08:29→21:16)
[2023-03-04] MEDS: Fish Oil 1,000 MG CAP PO SCH (08:29)
[2023-03-04] MEDS: Magnesium Oxide 400 MG TAB PO SCH ×3 (08:36→21:15)
[2023-03-04] MEDS: Aspirin 81 mg Enteric Coated Tablet PO SCH ×2 (08:36→13:17)
[2023-03-04 08:39] LABS: Anion Gap 14 mmol/L (10-20); BUN (Urea Nitrogen) 28 mg/dL (8.4-25.7); Calc. Creatinine Clearance 42 mL/min (70-130); Calcium 8.8 mg/dL (7.8-10.44); Carbon Dioxide 24 mmol/L (23-31); Chloride 97 mmol/L (98-107); Estimated GFR 23; Glucose 106 mg/dL (83-110); Magnesium 1.9 mg/dL (1.6-2.6); Potassium 3.7 mmol/L (3.5-5.1); Sodium 131 mmol/L (136-145)
[2023-03-04] MEDS: Sildenafil Citrate 20 MG TAB PO SCH ×2 (13:13→14:53)
[2023-03-04] MEDS: DOBUTamine 500 mg/250 ml 500 MG in Premix Bag 1 BAG IVPB SCH (15:39)
[2023-03-04] MEDS: Atorvastatin Calcium 40 MG TAB PO SCH (21:15)
[2023-03-04] MEDS: Acetaminophen 325 MG TAB PO PRN (21:59)
[2023-03-04] MEDS ORDERED: Arformoterol 15 MCG/2 ML NEB ONE (23:23)
[2023-03-05 05:02] LABS: #Eosinphils 0.2 thou/uL (0.0-0.7); #Monocytes 0.6 thou/uL (0.11-0.59); #Neutrophils 6.8 thou/uL (1.40-6.50); %Basophils 0.5 % (0.0-1.0); %Eosinophils 2.2 % (0.0-10.0); %Lymphocytes 4.7 % (21.0-51.0); %Monocytes 7.7 % (0.0-10.0); %Neutrophils 84.7 % (42.0-75.0); Hematocrit 37.6 % (42.0-52.0); Hemoglobin 12.5 g/dL (14.0-18.0); Mean Corpuscular HGB CONC 33.2 g/dL (32.0-36.0); Mean Corpuscular Hemoglobin 30.3 pg (27.0-31.0); Mean Corpuscular Volume 91.3 fl (78.0-98.0); Mean Platelet Volume 11.5 fL (7.4-10.4); Platelet Count 106 10x3/uL (130-400); RBC Distribution Width 15.4 % (11.5-14.5); Red Blood Cell (RBC) Count 4.12 mill/uL (4.70-6.10); White Blood Cell (WBC) Count 8.1 10x3/uL (4.8-10.8)
[2023-03-05 05:41] LABS: Anion Gap 17 mmol/L (10-20); BUN (Urea Nitrogen) 20 mg/dL (8.4-25.7); Calc. Creatinine Clearance 39 mL/min (70-130); Calcium 8.9 mg/dL (7.8-10.44); Carbon Dioxide 22 mmol/L (23-31); Chloride 95 mmol/L (98-107); Estimated GFR 21; Glucose 107 mg/dL (83-110); Potassium 3.7 mmol/L (3.5-5.1); Sodium 130 mmol/L (136-145)
[2023-03-05] MEDS: DOBUTamine 500 mg/250 ml 500 MG in Premix Bag 1 BAG IVPB SCH ×2 (06:03→18:11)
[2023-03-05] MEDS: Ipratropium/Albuterol 3 ML NEB NEB SCH ×4 (07:24→18:55)
[2023-03-05] MEDS: Arformoterol 15 MCG/2 ML NEB NEB SCH ×2 (07:30→18:57)
[2023-03-05] MEDS: Calcitriol 0.25 MCG CAP PO SCH (09:57)
[2023-03-05] MEDS: Magnesium Oxide 400 MG TAB PO SCH ×2 (09:57→20:16)
[2023-03-05] MEDS: Fish Oil 1,000 MG CAP PO SCH (09:58)
[2023-03-05] MEDS: Famotidine 20 MG TAB PO SCH (09:58)
[2023-03-05] MEDS: Apixaban 2.5 MG TAB PO SCH ×2 (09:58→20:15)
[2023-03-05] MEDS: Aspirin 81 mg Enteric Coated Tablet PO SCH (10:02)
[2023-03-05] MEDS: Digoxin 0.125 MG TAB PO SCH (10:06)
[2023-03-05] MEDS ORDERED: Cosyntropin 250 MCG VIAL SLOW IVP SCH (11:00)
[2023-03-05] MEDS: HYDROcodone/Acetaminophen 5/325 mg Tablet PO PRN (13:54)
[2023-03-05] MEDS: Atorvastatin Calcium 40 MG TAB PO SCH (20:15)
[2023-03-05] MEDS: Senokot S 8.6-50 MG TAB PO PRN (20:16)
[2023-03-06] MEDS: HYDROcodone/Acetaminophen 5/325 mg Tablet PO PRN ×3 (00:09→20:54)
[2023-03-06 04:43] LABS: #Eosinphils 0.1 thou/uL (0.0-0.7); #Monocytes 0.6 thou/uL (0.11-0.59); #Neutrophils 7.3 thou/uL (1.40-6.50); %Basophils 0.2 % (0.0-1.0); %Eosinophils 0.8 % (0.0-10.0); %Lymphocytes 3.5 % (21.0-51.0); %Monocytes 7.4 % (0.0-10.0); %Neutrophils 87.7 % (42.0-75.0); Hematocrit 36.9 % (42.0-52.0); Hemoglobin 12.4 g/dL (14.0-18.0); Mean Corpuscular HGB CONC 33.6 g/dL (32.0-36.0); Mean Corpuscular Hemoglobin 30.2 pg (27.0-31.0); RBC Distribution Width 15.2 % (11.5-14.5); White Blood Cell (WBC) Count 8.3 10x3/uL (4.8-10.8)
[2023-03-06 05:04] LABS: Platelet Count 102 10x3/uL (130-400)
[2023-03-06 05:08] LABS: Anion Gap 15 mmol/L (10-20); BUN (Urea Nitrogen) 27 mg/dL (8.4-25.7); Calc. Creatinine Clearance 32 mL/min (70-130); Carbon Dioxide 24 mmol/L (23-31); Chloride 92 mmol/L (98-107); Estimated GFR 17; Glucose 115 mg/dL (83-110); Sodium 127 mmol/L (136-145)
[2023-03-06] MEDS: Arformoterol 15 MCG/2 ML NEB NEB SCH ×2 (07:05→19:02)
[2023-03-06] MEDS: Ipratropium/Albuterol 3 ML NEB NEB SCH ×4 (07:08→18:57)
[2023-03-06] MEDS: DOBUTamine 500 mg/250 ml 500 MG in Premix Bag 1 BAG IVPB SCH (07:23)
[2023-03-06] MEDS: Calcitriol 0.25 MCG CAP PO SCH (09:39)
[2023-03-06] MEDS: Aspirin 81 mg Enteric Coated Tablet PO SCH (09:39)
[2023-03-06] MEDS: Apixaban 2.5 MG TAB PO SCH ×2 (09:39→20:54)
[2023-03-06] MEDS: Famotidine 20 MG TAB PO SCH (09:39)
[2023-03-06] MEDS: Magnesium Oxide 400 MG TAB PO SCH ×2 (12:55→20:54)
[2023-03-06] MEDS: Fish Oil 1,000 MG CAP PO SCH (12:55)
[2023-03-06] MEDS ORDERED: Heparin 10,000 UNITS/ 10 ML VIAL ONE (14:37)
[2023-03-06] MEDS: Albumin 25% 25 GM/100 ML BOT IVPB SCH ×2 (20:53→22:03)
[2023-03-06] MEDS: Atorvastatin Calcium 40 MG TAB PO SCH (20:53)
[2023-03-06] MEDS: Senokot S 8.6-50 MG TAB PO PRN (20:54)
[2023-03-07] MEDS: Albumin 25% 25 GM/100 ML BOT IVPB SCH ×2 (01:57→10:29)
[2023-03-07 04:39] LABS: #Eosinphils 0.2 thou/uL (0.0-0.7); #Monocytes 0.7 thou/uL (0.11-0.59); %Basophils 0.4 % (0.0-1.0); %Eosinophils 2.3 % (0.0-10.0); %Lymphocytes 4.9 % (21.0-51.0); %Neutrophils 82.9 % (42.0-75.0); Hematocrit 35.1 % (42.0-52.0); Hemoglobin 11.7 g/dL (14.0-18.0); Mean Corpuscular HGB CONC 33.3 g/dL (32.0-36.0); Mean Corpuscular Hemoglobin 30.7 pg (27.0-31.0); Mean Corpuscular Volume 92.1 fl (78.0-98.0); Mean Platelet Volume 10.7 fL (7.4-10.4); Platelet Count 101 10x3/uL (130-400); RBC Distribution Width 15.6 % (11.5-14.5); Red Blood Cell (RBC) Count 3.81 mill/uL (4.70-6.10); White Blood Cell (WBC) Count 7.3 10x3/uL (4.8-10.8)
[2023-03-07 05:03] LABS: Anion Gap 15 mmol/L (10-20); BUN (Urea Nitrogen) 16 mg/dL (8.4-25.7); Calc. Creatinine Clearance 39 mL/min (70-130); Calcium 9.2 mg/dL (7.8-10.44); Carbon Dioxide 27 mmol/L (23-31); Chloride 92 mmol/L (98-107); Estimated GFR 21; Glucose 102 mg/dL (83-110); Magnesium 2.2 mg/dL (1.6-2.6); Potassium 3.7 mmol/L (3.5-5.1); Sodium 130 mmol/L (136-145)
[2023-03-07] MEDS: Ipratropium/Albuterol 3 ML NEB NEB SCH ×4 (07:37→18:20)
[2023-03-07] MEDS: Arformoterol 15 MCG/2 ML NEB NEB SCH ×2 (07:43→18:29)
[2023-03-07] MEDS ORDERED: Lidocaine 1% w/Epinephrine 1:100K 20 ML VIAL ONE (09:11)
[2023-03-07] MEDS: DOBUTamine 500 mg/250 ml 500 MG in Premix Bag 1 BAG IVPB SCH ×2 (09:30→21:57)
[2023-03-07] MEDS: Magnesium Oxide 400 MG TAB PO SCH ×2 (10:12→19:54)
[2023-03-07] MEDS: Apixaban 2.5 MG TAB PO SCH ×2 (10:12→19:53)
[2023-03-07] MEDS: HYDROcodone/Acetaminophen 5/325 mg Tablet PO PRN (10:46)
[2023-03-07] MEDS: methylPREDNISolone Sod Succ/PF 125 MG/2 ML VIAL IVP SCH ×2 (15:26→19:47)
[2023-03-07] MEDS ORDERED: Pantoprazole 40 MG VIAL IVP SCH (17:00)
[2023-03-07] MEDS: Digoxin 0.125 MG TAB PO SCH (17:15)
[2023-03-07] MEDS: Fish Oil 1,000 MG CAP PO SCH (17:16)
[2023-03-07] MEDS: Calcitriol 0.25 MCG CAP PO SCH (17:16)
[2023-03-07] MEDS: Aspirin 81 mg Enteric Coated Tablet PO SCH (17:16)
[2023-03-07] MEDS: Atorvastatin Calcium 40 MG TAB PO SCH (19:54)
[2023-03-08 04:32] LABS: #Monocytes 0.2 thou/uL (0.11-0.59); %Basophils 0.1 % (0.0-1.0); %Lymphocytes 2.3 % (21.0-51.0); %Monocytes 1.7 % (0.0-10.0); %Neutrophils 94.9 % (42.0-75.0); Hematocrit 38.8 % (42.0-52.0); Hemoglobin 12.8 g/dL (14.0-18.0); Mean Corpuscular Hemoglobin 30.6 pg (27.0-31.0); Mean Corpuscular Volume 92.8 fl (78.0-98.0); Mean Platelet Volume 12.1 fL (7.4-10.4); Platelet Count 109 10x3/uL (130-400); RBC Distribution Width 15.8 % (11.5-14.5); Red Blood Cell (RBC) Count 4.18 mill/uL (4.70-6.10); White Blood Cell (WBC) Count 9.5 10x3/uL (4.8-10.8)
[2023-03-08 04:59] LABS: Anion Gap 17 mmol/L (10-20); BUN (Urea Nitrogen) 22 mg/dL (8.4-25.7); Calc. Creatinine Clearance 29 mL/min (70-130); Calcium 9.2 mg/dL (7.8-10.44); Carbon Dioxide 23 mmol/L (23-31); Chloride 93 mmol/L (98-107); Estimated GFR 15; Glucose 128 mg/dL (83-110); Magnesium 2.4 mg/dL (1.6-2.6); Potassium 4.1 mmol/L (3.5-5.1); Sodium 129 mmol/L (136-145)
[2023-03-08] MEDS: Arformoterol 15 MCG/2 ML NEB NEB SCH ×2 (07:11→18:37)
[2023-03-08] MEDS: Ipratropium/Albuterol 3 ML NEB NEB SCH ×4 (07:11→18:35)
[2023-03-08] MEDS: DOBUTamine 500 mg/250 ml 500 MG in Premix Bag 1 BAG IVPB SCH (10:19)
[2023-03-08] MEDS ORDERED: Tuberculin PPD 0.1 ML VIAL I-DERMAL SCH (10:30)
[2023-03-08] MEDS: methylPREDNISolone Sod Succ/PF 125 MG/2 ML VIAL IVP SCH ×2 (14:16→21:07)
[2023-03-08] MEDS: Apixaban 2.5 MG TAB PO SCH ×2 (14:16→21:08)
[2023-03-08] MEDS: Calcitriol 0.25 MCG CAP PO SCH (14:38)
[2023-03-08] MEDS: Fish Oil 1,000 MG CAP PO SCH (14:39)
[2023-03-08] MEDS: Pantoprazole 40 MG VIAL IVP SCH ×2 (14:39→21:07)
[2023-03-08] MEDS: Aspirin 81 mg Enteric Coated Tablet PO SCH (14:39)
[2023-03-08] MEDS ORDERED: Sodium Chloride 0.9% 250 ML IV SCH (17:00)
[2023-03-08] MEDS: Atorvastatin Calcium 40 MG TAB PO SCH (21:08)
[2023-03-09 05:09] LABS: #Monocytes 0.3 thou/uL (0.11-0.59); #Neutrophils 10.1 thou/uL (1.40-6.50); %Basophils 0.1 % (0.0-1.0); %Lymphocytes 1.8 % (21.0-51.0); %Monocytes 3.2 % (0.0-10.0); %Neutrophils 94.2 % (42.0-75.0); Hemoglobin 12.8 g/dL (14.0-18.0); Mean Corpuscular HGB CONC 32.8 g/dL (32.0-36.0); Mean Corpuscular Hemoglobin 30.5 pg (27.0-31.0); Mean Corpuscular Volume 93.1 fl (78.0-98.0); Mean Platelet Volume 11.7 fL (7.4-10.4); Platelet Count 109 10x3/uL (130-400); RBC Distribution Width 15.7 % (11.5-14.5); Red Blood Cell (RBC) Count 4.19 mill/uL (4.70-6.10); White Blood Cell (WBC) Count 10.8 10x3/uL (4.8-10.8)
[2023-03-09 05:28] LABS: Digoxin 0.15 ng/mL (0.8-2.0)
[2023-03-09 05:34] LABS: Anion Gap 18 mmol/L (10-20); BUN (Urea Nitrogen) 26 mg/dL (8.4-25.7); Calc. Creatinine Clearance 28 mL/min (70-130); Calcium 9.1 mg/dL (7.8-10.44); Carbon Dioxide 24 mmol/L (23-31); Chloride 95 mmol/L (98-107); Estimated GFR 14; Glucose 144 mg/dL (83-110); Magnesium 2.4 mg/dL (1.6-2.6); Sodium 133 mmol/L (136-145)
[2023-03-09] MEDS: Arformoterol 15 MCG/2 ML NEB NEB SCH ×2 (06:59→18:33)
[2023-03-09] MEDS: Ipratropium/Albuterol 3 ML NEB NEB SCH ×4 (06:59→18:33)
[2023-03-09] MEDS: Bisacodyl 10 MG SUPP PR SCH (10:08)
[2023-03-09] MEDS: Apixaban 2.5 MG TAB PO SCH (10:08)
[2023-03-09] MEDS: methylPREDNISolone Sod Succ/PF 125 MG/2 ML VIAL IVP SCH ×2 (10:08→21:41)
[2023-03-09] MEDS: Aspirin 81 mg Enteric Coated Tablet PO SCH (10:08)
[2023-03-09] MEDS: Pantoprazole 40 MG VIAL IVP SCH ×2 (10:08→21:42)
[2023-03-09] MEDS: Fish Oil 1,000 MG CAP PO SCH (10:09)
[2023-03-09] MEDS: Calcitriol 0.25 MCG CAP PO SCH (10:09)
[2023-03-09 10:11] LABS: Magnesium 2.4 mg/dL (1.6-2.6); Phosphorus 3.1 mg/dL (2.3-4.7)
[2023-03-09] MEDS: Atorvastatin Calcium 40 MG TAB PO SCH (21:40)
[2023-03-09] MEDS: Senokot S 8.6-50 MG TAB PO SCH (21:41)
[2023-03-10] MEDS: DOBUTamine 500 mg/250 ml 500 MG in Premix Bag 1 BAG IVPB SCH ×2 (03:42→15:12)
[2023-03-10 05:31] LABS: #Monocytes 0.6 thou/uL (0.11-0.59); #Neutrophils 9.4 thou/uL (1.40-6.50); %Basophils 0.1 % (0.0-1.0); %Lymphocytes 2.3 % (21.0-51.0); %Monocytes 5.5 % (0.0-10.0); %Neutrophils 91.4 % (42.0-75.0); Hematocrit 37.9 % (42.0-52.0); Hemoglobin 12.5 g/dL (14.0-18.0); Mean Corpuscular Hemoglobin 30.6 pg (27.0-31.0); Mean Corpuscular Volume 92.7 fl (78.0-98.0); Mean Platelet Volume 12.2 fL (7.4-10.4); Platelet Count 122 10x3/uL (130-400); RBC Distribution Width 15.3 % (11.5-14.5); Red Blood Cell (RBC) Count 4.09 mill/uL (4.70-6.10); White Blood Cell (WBC) Count 10.3 10x3/uL (4.8-10.8)
[2023-03-10 05:50] LABS: Anion Gap 18 mmol/L (10-20); BUN (Urea Nitrogen) 48 mg/dL (8.4-25.7); Calc. Creatinine Clearance 20 mL/min (70-130); Calcium 9.2 mg/dL (7.8-10.44); Carbon Dioxide 21 mmol/L (23-31); Chloride 91 mmol/L (98-107); Estimated GFR 10; Glucose 127 mg/dL (83-110); Magnesium 2.5 mg/dL (1.6-2.6); Sodium 126 mmol/L (136-145)
[2023-03-10] MEDS: Ipratropium/Albuterol 3 ML NEB NEB SCH ×3 (07:33→19:24)
[2023-03-10] MEDS: Arformoterol 15 MCG/2 ML NEB NEB SCH ×2 (07:35→19:24)
[2023-03-10] MEDS ORDERED: Phenol 118 ML BOT PO SCH ×2 (09:30→15:00)
[2023-03-10] MEDS: Fish Oil 1,000 MG CAP PO SCH (10:02)
[2023-03-10] MEDS: Aspirin 81 mg Enteric Coated Tablet PO SCH (10:02)
[2023-03-10] MEDS: Calcitriol 0.25 MCG CAP PO SCH (10:02)
[2023-03-10] MEDS: Bisacodyl 10 MG SUPP PR SCH ×2 (10:02→14:27)
[2023-03-10] MEDS: Pantoprazole 40 MG VIAL IVP SCH ×2 (10:03→14:26)
[2023-03-10] MEDS: methylPREDNISolone Sod Succ/PF 125 MG/2 ML VIAL IVP SCH ×2 (10:03→14:26)
[2023-03-10] MEDS: Senokot S 8.6-50 MG TAB PO SCH ×2 (10:03→14:27)
[2023-03-10 13:12] VITALS: BMI 38.8
[2023-03-10] MEDS ORDERED: Metoclopramide HCl 10 MG/2 ML VIAL IVP SCH (14:15)
[2023-03-10 16:16] VITALS: BP 102/58; TEMP 98.3
[2023-03-10] MEDS ORDERED: CEFAZOLIN 2 GM in Sodium Chloride 0.9% 100 ML IVPB SCH (23:30)
[2023-03-11] MEDS ORDERED: CEFAZOLIN 2 GM in Sodium Chloride 0.9% 100 ML IVPB SCH (15:30)
[2023-03-12] MEDS ORDERED: CEFAZOLIN 2 GM in Sodium Chloride 0.9% 100 ML IVPB SCH (13:45)
== END 2023-03-10 23:35 | disposition expired ==
LOC: SUATTDRO 09:54 → ERS 09:54 → 2SE 12:30 → 2NO 03-04 22:38
PROVIDERS: ADMIT Family Medicine; ATTEND Family Medicine
PROC: 30233J1 Transfusion of Nonautologous Serum Albumin into Peripheral Vein, Percutaneous Approach (ICD-10-PCS; 2023-02-23)
PROC: 02HV33Z Insertion of Infusion Device into Superior Vena Cava, Percutaneous Approach (ICD-10-PCS; principal; 2023-03-01)
PROC: 5A1D70Z Performance of Urinary Filtration, Intermittent, Less than 6 Hours Per Day (ICD-10-PCS; 2023-03-01)
PROC: 5A09457 Assistance with Respiratory Ventilation, 24-96 Consecutive Hours, Continuous Positive Airway Pressure (ICD-10-PCS; 2023-03-07)
PROC: 0D9670Z Drainage of Stomach with Drainage Device, Via Natural or Artificial Opening (ICD-10-PCS; 2023-03-07)
DX: I13.2 Hypertensive heart and chronic kidney disease with heart failure and with stage 5 chronic kidney disease, or end stage renal disease (principal); I50.33 Acute on chronic diastolic (congestive) heart failure; I21.A1 Myocardial infarction type 2; J96.21 Acute and chronic respiratory failure with hypoxia; N18.6 End stage renal disease; N17.0 Acute kidney failure with tubular necrosis; J44.1 Chronic obstructive pulmonary disease with (acute) exacerbation; E87.1 Hypo-osmolality and hyponatremia; T83.83XA Hemorrhage due to genitourinary prosthetic devices, implants and grafts, initial encounter; I48.92 Unspecified atrial flutter; K56.7 Ileus, unspecified; I48.19 Other persistent atrial fibrillation; I47.20 Ventricular tachycardia, unspecified; Z66 Do not resuscitate; R00.1 Bradycardia, unspecified; D63.1 Anemia in chronic kidney disease; E66.01 Morbid (severe) obesity due to excess calories; I87.8 Other specified disorders of veins; I89.0 Lymphedema, not elsewhere classified; N31.9 Neuromuscular dysfunction of bladder, unspecified; Y84.6 Urinary catheterization as the cause of abnormal reaction of the patient, or of later complication, without mention of misadventure at the time of the procedure; R31.0 Gross hematuria; I08.0 Rheumatic disorders of both mitral and aortic valves; K21.9 Gastro-esophageal reflux disease without esophagitis; K59.00 Constipation, unspecified; E11.22 Type 2 diabetes mellitus with diabetic chronic kidney disease; E78.00 Pure hypercholesterolemia, unspecified; I50.813 Acute on chronic right heart failure; E11.43 Type 2 diabetes mellitus with diabetic autonomic (poly)neuropathy; M10.9 Gout, unspecified; N26.1 Atrophy of kidney (terminal); I95.9 Hypotension, unspecified; N28.1 Cyst of kidney, acquired; I45.10 Unspecified right bundle-branch block; I44.0 Atrioventricular block, first degree; R33.8 Other retention of urine; K31.84 Gastroparesis; T40.605A Adverse effect of unspecified narcotics, initial encounter; I27.20 Pulmonary hypertension, unspecified; G47.33 Obstructive sleep apnea (adult) (pediatric); I25.10 Atherosclerotic heart disease of native coronary artery without angina pectoris; Z95.5 Presence of coronary angioplasty implant and graft; Z95.1 Presence of aortocoronary bypass graft; Z86.73 Personal history of transient ischemic attack (TIA), and cerebral infarction without residual deficits; Z90.89 Acquired absence of other organs; Z82.49 Family history of ischemic heart disease and other diseases of the circulatory system; Z87.891 Personal history of nicotine dependence; Z79.82 Long term (current) use of aspirin; Z79.899 Other long term (current) drug therapy; Z99.81 Dependence on supplemental oxygen; Z68.38 Body mass index [BMI] 38.0-38.9, adult; Z80.0 Family history of malignant neoplasm of digestive organs; Z79.01 Long term (current) use of anticoagulants
CPT/HCPCS: 36415; 36416; 51702; 70450; 71045; 74019; 74176; 76770; 80048; 80053; 80162; 80400; 81001; 82040; 82570; 83690; 83735; 83880; 84100; 84156; 84300; 84443; 84484; 84540; 85025; 86580; 86704; 87086; 90935; 93005; 93010; 93306; 94760; 96374; 97139; C9113; G0257; J0834; J1250; J1642; J1644; J1940; J2405; J2765; J2930; J7030; J7050; J7620; P9047